=== PATIENT | female | born 1945 | race Caucasian/White ===

== ENCOUNTER 2018-06-30 05:30 | Observation (INO) | payer MEDICARE ==
--- NOTE | 2018-06-27 08:44 | HP ---
H&P (Free Text) History and Physical: [facility] TARYN HUNG M.D. [address] [place] [phone] Date of Visit: June 25, 2018 Patient Name: Radha Mcdermott : 1945 Gender: female Age: 72 years Primary Care Physician: Belia Philip MD HISTORY AND PHYSICAL CC: History prior to left total knee replacement for left knee pain. DATE OF SURGERY: 06/30/2018. ATTENDING SURGEON: Taryn Hung MD. HPI: The patient is a pleasant 72-year-old female with a longstanding history of bilateral knee pain with her left being worse than her right. She has received steroid injections, physical therapy, and NSAID treatment, however has continued to have pain and has elected to undergo a left total knee replacement by Dr. Hung for her end stage osteoarthritis of her left knee. CURRENT MEDICATIONS: 1. Tylenol p.r.n. 2. Pravastatin 20 mg p.o. daily. 3. Losartan potassium/hydrochlorothiazide 100/25. 4. Ibuprofen 200 mg every 6 hours as needed for pain. ALLERGIES: No known drug allergies. PAST MEDICAL HISTORY: 1. History of gastritis. No history of ulceration. 2. Hiatal hernia. 3. Diverticulosis. 4. History of carcinoma tumor. 5. Generalized osteoarthritis of bilateral knees. 6. Myopia. 7. Hyperlipidemia. 8. Essential hypertension. PAST SURGICAL HISTORY: 1. Total hysterectomy with bilateral oophorectomy, stage 1. 2. Thyroid, left lobe resection in 1975. 3. Tonsils and adenoids. 4. Left knee arthroscopy in 2002. FAMILY HISTORY: Positive for father with Parkinson's. SOCIAL HISTORY: No alcohol use. No tobacco use. Currently living at home. Living on 1 level. Friends will be staying at the home for several days with the patient postoperatively. ROS: Negative for fevers, chills, night sweats, nausea or vomiting, constipation, diarrhea, lightheadedness, dizziness, stroke, NH, COPD, shortness of breath, blood in her stool or urine, difficulty with ambulation, diabetes, bleeding disorders, difficulty with anesthesia, infectious disease. Positive for GERD, osteoarthritis in her hands, thyroid resection, not requiring medication. Vitals: Ht: 63" Wt: 180lb BP: 134/82 Resp: 20 Pain Level: 6 BMI: 31.9 EXAM: GENERAL: Well appearing, no acute distress. Alert and oriented x3. Mildly antalgic gait, favoring the left-hand side. HEENT: Normocephalic, atraumatic. Trachea midline. LUNGS: Clear to auscultation bilaterally. No crackles, rhonchi or wheezes. CARDIAC: Regular rate and rhythm. No murmurs, gallops or rubs. ABDOMEN: Soft, nontender, nondistended. Negative CVA tenderness bilaterally. MUSCULOSKELETAL: Bilateral posterior tibial pulses 2+. Positive dorsiflexion and plantar flexion, ankles bilaterally. Negative Homans sign. Range of motion of left knee 0-120 degrees with mild crepitus. No pain with terminal endpoints. No instability with varus or valgus stressing. Negative anterior drawer. STUDIES: X-rays of the left knee obtained on 03/26/2018. ASSESSMENT: Osteoarthritis, left knee. PLAN: The patient is to undergo a left total knee replacement on 06/30/[address] Taryn Hung. The patient had no questions or concerns with regard to the procedure. She will be on Coumadin postoperatively for DVT prophylaxis. She has had no difficulty with narcotic medications in the past. She wishes to return home postoperatively and will have friends there to care for her. She has undergone her CBC and CMP which are within normal limits. She will undergo preoperative testing. She was cleared by her primary doctor, Dr. Philip. She will call us with any questions or concerns she has. Assessment #1: Hx M17.12 Unilateral primary osteoarthritis, left knee Care Plan: Follow Up : Follow up: 1 month post-op
--- OUTSIDE RECORDS SUMMARY | 2018-06-30 05:35 | XMS REPORT | Continuity of Care Document ---
:1945 External Reference #:[id number] Author Name Kasey Cerna Care Team Providers Name Role Phone Belia Philip MD Primary Care Physician Unavailable Payers Type Date Identification Numbers Payment Provider Subscriber Policy Number: [id number] [facility] Medicare Maria Victoria Neely Group Number: [id number] [address] [address] PayID: [id number] [place] [address] Effective: 2014 Policy Number: [id number] Medicare Radha Neely Expires: 2015 PayID: [id number] [address] [facility] [place] [address] Expires: 2014 Policy Number: [facility] Medicare Radha Neely [id number] Solutions PayID: [id number] [address] [address] Karena PELAEZ [facility] [place] [address] Advance Directives Type Date Description Status Comment MOLST 01/24/2017 MOLST Current and Verified Problems Date Description Provider Status Onset: 01/21/2014 Essential hypertension Annette Stuart M.D. Active Onset: 01/21/2014 Hyperlipidemia Annette Stuart M.D. Active Onset: 01/21/2014 Myopia Annette Stuart M.D. Active Onset: 02/02/2015 Osteoarthritis of knee Luke Garcia M.D. Active Onset: 08/24/2015 Localized, primary osteoarthritis Luke Garcia M.D. Active Onset: 04/09/2016 Diverticulosis of sigmoid colon Tye Butler NP Active Onset: 04/09/2016 Hiatal hernia Tye Butler NP Active Note: small HH Onset: 04/09/2016 Gastritis Tye Butler NP Active Note: mild noted on colonoscopy; concurrent with aspirin use Onset: 04/09/2016 Gastric polyposis Tye Butler NP Active Note: colonoscopy: removed sent for testing Onset: 04/06/2016 Carcinoid tumor Tye Butler NP Active Note: Dr. Brittany Garcia([facility]) Plan for: octreotide scan Onset: 01/24/2017 Total hysterectomy with removal of both Belia Philip M.D. 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 months Losartan 00 Active Tablets 100-25mg 90tab 1 by mouth Belia Potassium/Hydr /0000 s every day Philip, ochlorothiazid M.D. e Pravastatin Active Tablets 20mg 90tab 1 tablet by Belia Sodium /0000 s mouth every Philip, other day M.D. Acetaminophen 00 Active Tablets 325mg 2 tablets by Unknown /0000 mouth every 6 hours as needed for pain/fever Keflex 04/18 Hx Capsules 500mg 42cap 1 tab by [id number] Tye /2015 s mouth three NICK Butler - times a day 05/02 for 14 days. Vitamin D 01/16 Hx Capsules [id number] 8caps 1 tab by Lesli (Ergocalcifero /2015 mouth once Cotton l) - per week, 8 M.D. 04/18 weeks, follow up for blood test Amoxicillin 08/12 Hx Tablets 500mg 20tab 1 tab twice J01.90 Annette /2015 s a day x 10 Stuart, - days M.D. 01/09 Flonase 08/12 Hx Suspension 50mcg/Act 16uni spray 1 J01.90 Annette Allergy Relief /2015 ts spray in Stuart, - each nostril M.DGustavo 04/18 twice daily /2016 Aspir-[address] 81mg 1 by mouth Unknown /0000 every day - 05/[address] 20mg 2 by mouth Unknown /0000 every day - 01/24 Ibuprofen 200 00 Hx Tablets 200mg 400-600mg Unknown /0000 every 6 - hours as 06/24 needed for /2018 pain. Depomedrol Hx Injection Luke 40MG /0000 Morena Garcia M.D. 08/24 Medications Administered in Office Medication Date Status Form Strength Qnty SIG Indications Ordering Provider Depomedrol Administered Injection Luke 40MG Damian Garcia M.D. Depomedrol Administered Injection Luke 40MG 018 Kei Garcia Depomedrol Administered Injection Estrellita 40MG 017 SHAYE Olivier Depomedrol Administered Injection Luke 40MG 017 Kei Garcia Depomedrol Administered Injection Luke 40MG 017 Kei Garcia Depomedrol Administered Injection Luke 40MG 016 Kei Garcia Depomedrol Administered Injection Luke 40MG 016 Kei Garcia Depomedrol Administered Injection Luke 40MG 016 Kei Garcia Depomedrol Administered Injection Luke 40MG 016 Kei Garcia Depomedrol Administered Injection Luke 40MG 016 Kei Garcia Depomedrol Administered Injection Tia 80MG 015 KARLI Johnson Immunizations CPT Code Status Date Vaccine Lot # [id number] Given 03/31/2018 Influenza Virus Vaccine, Quadrivalent, Split, Preservative Free [id number] Given 03/19/2017 Influenza Virus Vaccine, Quadrivalent, Split, Preservative Free 38014 Given 03/20/2016 Fluzone High Dose 89465 Given 03/31/2015 Fluzone High Dose 87412 Given 01/06/2015 Tdap - Tetanus/Diptheria/Acellular Pertussis [id number] 70579 Given 01/06/2015 Pneumococcal Conjugate Vaccine 13 Valent For [id number] Intramuscular Use 47530 Given 03/25/2014 Flu Vaccine Split Virus Preservative Free For Indiv 3Yr Older 99202 Given 01/21/2014 Zoster (Zostavax) [id number] 68742 Given 02/02/2009 Pneumonia Vaccine Vital Signs Date Vital Result Comment 06/25/2018 12:57pm Height 63 inches 5'3" Weight 180.00 lb BP Systolic 134 mmHg BP Diastolic 82 mmHg Respiratory Rate 20 /min Pain Level 6 BMI (Body Mass Index) 31.9 kg/m2 06/05/2018 9:20am Height 62 inches 5'2" Weight 180.00 lb Heart Rate 60 /min BP Systolic Sitting 128 mmHg BP Diastolic Sitting 76 mmHg O2 % BldC Oximetry 96 % BMI (Body Mass Index) 32.9 kg/m2 04/14/2018 10:51am Height 62 inches 5'2" Weight 178.00 lb Heart Rate 80 /min BP Systolic Sitting 126 mmHg BP Diastolic Sitting 80 mmHg O2 % BldC Oximetry 96 % BMI (Body Mass Index) 32.6 kg/m2 03/26/2018 11:07am Height 63 inches 5'3" Weight 176.00 lb Heart Rate 70 /min BP Systolic 124 mmHg BP Diastolic 76 mmHg Respiratory Rate 20 /min Pain Level 7 BMI (Body Mass Index) 31.2 kg/m2 11/18/2017 9:53am Height 63 inches 5'3" Weight 176.00 lb Heart Rate 66 /min BP Systolic Sitting 126 mmHg BP Diastolic Sitting 78 mmHg O2 % BldC Oximetry 94 % BMI (Body Mass Index) 31.2 kg/m2 10/23/2017 10:16am Height 63 inches 5'3" Weight 185.00 lb BP Systolic 136 mmHg BP Diastolic 78 mmHg Respiratory Rate 18 /min Pain Level 5 BMI (Body Mass Index) 32.8 kg/m2 06/19/2017 9:23am Height 63 inches 5'3" Weight 185.00 lb BP Systolic 118 mmHg BP Diastolic 70 mmHg Respiratory Rate 20 /min Pain Level 6 BMI (Body Mass Index) 32.8 kg/m2 02/13/2017 9:18am Height 63 inches 5'3" Weight 185.00 lb BP Systolic 130 mmHg BP Diastolic 68 mmHg Respiratory Rate 20 /min Body Temperature 97.4 F Pain Level 5 BMI (Body Mass Index) 32.8 kg/m2 01/24/2017 1:13pm Height 63 inches 5'3" Weight 185.50 lb Heart Rate 53 /min BP Systolic 120 mmHg BP Diastolic 60 mmHg Body Temperature 97.3 F O2 % BldC Oximetry 98 % BMI (Body Mass Index) 32.9 kg/m2 10/10/2016 9:17am Height 63 inches 5'3" Weight 185.00 lb Heart Rate 78 /min BP Systolic 138 mmHg BP Diastolic 80 mmHg Respiratory Rate 16 /min Body Temperature 97.4 F Pain Level 4 BMI (Body Mass Index) 32.8 kg/m2 05/09/2016 8:58am Height 63 inches 5'3" Weight 185.00 lb per patient BP Systolic Sitting 138 mmHg BP Diastolic Sitting 80 mmHg Pain Level 4 /10 BMI (Body Mass Index) 32.8 kg/m2 04/18/2016 11:37am Height 63 inches 5'3" Weight 186.25 lb Heart Rate 92 /min BP Systolic Sitting 138 mmHg BP Diastolic Sitting 66 mmHg Body Temperature 98.4 F O2 % BldC Oximetry 97 % BMI (Body Mass Index) 33.0 kg/m2 01/12/2016 11:12am Height 63 inches 5'3" Weight 184.00 lb Pain Level 7 BMI (Body Mass Index) 32.6 kg/m2 01/10/2016 9:03am Height 63 inches 5'3" Weight 184.00 lb Heart Rate 56 /min BP Systolic Sitting 159 mmHg 138/76 recheck BP Diastolic Sitting 84 mmHg 138/76 recheck Body Temperature 97.1 F BMI (Body Mass Index) 32.6 kg/m2 08/24/2015 8:08am Height 63.5 inches 5'3.50" Weight 186.00 lb Pain Level 6 BMI (Body Mass Index) 32.4 kg/m2 08/12/2015 9:02am Heart Rate 65 /min BP Systolic Sitting 150 mmHg BP Diastolic Sitting 80 mmHg Body Temperature 98.1 F O2 % BldC Oximetry 97 % 04/27/2015 9:14am Height 63.5 inches 5'3.50" Weight 186.00 lb Pain Level 6 BMI (Body Mass Index) 32.4 kg/m2 04/08/2015 10:04am Height 63.5 inches 5'3.50" Weight 187.50 lb Heart Rate 58 /min BP Systolic Sitting 128 mmHg BP Diastolic Sitting 76 mmHg O2 % BldC Oximetry 98 % BMI (Body Mass Index) 32.7 kg/m2 02/02/2015 8:08am Height 63.5 inches 5'3.50" Weight 186.00 lb Heart Rate 59 /min BP Systolic 154 mmHg BP Diastolic 86 mmHg Respiratory Rate 18 /min Pain Level 5 BMI (Body Mass Index) 32.4 kg/m2 01/06/2015 8:49am Height 63.5 inches 5'3.50" Weight 186.25 lb Heart Rate 56 /min BP Systolic Sitting 132 mmHg BP Diastolic Sitting 88 mmHg O2 % BldC Oximetry 98 % BMI (Body Mass Index) 32.5 kg/m2 06/24/2014 9:47am Weight 187.00 lb Heart Rate 58 /min BP Systolic Sitting 124 mmHg BP Diastolic Sitting 82 mmHg 01/21/2014 1:42pm Height 63 inches 5'3" Weight 189.00 lb Heart Rate 70 /min BP Systolic Sitting 128 mmHg BP Diastolic Sitting 82 mmHg BMI (Body Mass Index) 33.5 kg/m2 Results Test Date Facility Test Result H/L Range Note Inr/Protime 06/17/2018 [facility] Inr 0.91 N 0.77-1.[address] [place] [address] [phone] Laboratory test 06/17/2018 [facility] Partial 30.8 seconds N 26.0-36.3 [address] [place] [address] PTT [phone] Comp Metabolic 06/17/2018 [facility] Sodium 140 mmol/L N 135- [address] [place] [address] [phone] Potassium 3.4 mmol/L Low 3.5-5.0 Chloride 102 mmol/L N 101-111 Co2 Carbon Dioxide 30 mmol/L N 22-32 Anion Gap 8 mmol/L N 2-11 Glucose 92 mg/dL N 70-100 Blood Urea Nitrogen 19 mg/dL N 6-24 Creatinine 0.68 mg/dL N 0.51-0.95 BUN/Creatinine Ratio 27.9 High 8-20 Calcium 9.6 mg/dL N 8.6-10.3 Total Protein 6.4 g/dL N 6.4-8.9 Albumin 4.2 g/dL N 3.2-5.2 Globulin 2.2 g/dL N 2-4 Albumin/Globulin Ratio 1.9 N 1-3 Total Bilirubin 0.60 mg/dL N 0.2-1.0 Alkaline Phosphatase 69 U/L N 34-104 Alt 16 U/L N 7-52 Ast 18 U/L N 13-39 Egfr Non- 85.1 >60 Egfr 102.9 >60 3 CBC Auto Diff 06/17/2018 [facility] White Blood 7.0 10^3/uL N 3.5-10.[address] [place] [address] [phone] Red Blood Count 5.16 10^6/uL N 4.00-5.40 Hemoglobin 15.8 g/dL N 12.0-16.0 Hematocrit 46 % N 35-47 Mean Corpuscular Volume 88 fL N 80-97 Mean Corpuscular Hemoglobin 31 pg N 27-31 Mean Corpuscular HGB Conc 35 g/dL N 31-36 Red Cell Distribution Width 13 % N 10.5-15 Platelet Count 268 10^3/uL N 150-450 Mean Platelet Volume 8.3 fL N 7.4-10.4 Abs Neutrophils 4.2 10^3/uL N 1.5-7.7 Abs Lymphocytes 2.1 10^3/uL N 1.0-4.8 Abs Monocytes 0.5 10^3/uL N 0-0.8 Abs Eosinophils 0.1 10^3/uL N 0-0.6 Abs Basophils 0.1 10^3/uL N 0-0.2 Abs Nucleated RBC 0 10^3/uL Granulocyte % 60.6 % Lymphocyte % 29.3 % Monocyte % 6.7 % Eosinophil % 2.1 % Basophil % 1.3 % Nucleated Red Blood Cells % 0.1 Type & Screen 06/17/2018 [facility] Patient Blood Type A Positive [address] [place] [address] [phone] Antibody Screen NEGATIVE Urinalysis Profile 06/17/2018 [facility] Urine Color Yellow [address] [place] [address] [phone] Urine Appearance Clear Urine Specific [place] 1.005 Low 1.010-1.030 Urine pH 7.0 N 5-9 Urine Urobilinogen Negative Negative Urine Ketones Negative Negative Urine Protein Negative Negative Urine Leukocytes Trace Abnormal Negative Urine Blood Negative Negative Urine Nitrite Negative Negative Urine Bilirubin Negative Negative Urine Glucose Negative Negative Urine White Blood Cell Trace(0-5/hpf) Absent Urine Red Blood Cell Absent Absent Urine Bacteria Absent Absent Urine Squamous Epithelial Cell Present Abnormal Absent Urine Culture And 06/17/2018 [facility] Urine Culture SEE RESULT [address] [place] [address] [phone] Laboratory test 01/09/2018 [facility] Surgical Pathology SEE RESULT [address] [place], [place] [id number] [phone] Lipid Profile 11/22/2017 [facility] Triglycerides 115 mg/dL 6 (Trig/Chol/HDL) [address] [place] [address] [phone] Cholesterol 154 mg/dL 7 HDL Cholesterol 45.7 mg/dL 8 LDL Cholesterol 85 mg/dL 9 Laboratory test 11/22/2017 [facility] Magnesium 2.1 mg/dL N 1.9-2.[address] [place] [address] [phone] Basic Metabolic 11/22/2017 [facility] Sodium 143 mmol/L N 139- [address] [place] [address] [phone] Potassium 3.7 mmol/L N 3.5-5.0 Chloride 103 mmol/L N 101-111 Co2 Carbon Dioxide 31 mmol/L N 22-32 Anion Gap 9 mmol/L N 2-11 Glucose 101 mg/dL High 70-100 Blood Urea Nitrogen 15 mg/dL N 6-24 Creatinine 0.64 mg/dL N 0.51-0.95 BUN/Creatinine Ratio 23.4 High 8-20 Calcium 9.4 mg/dL N 8.6-10.3 Egfr Non- 91.2 >60 Egfr 117.3 >60 10 Lipid Profile 01/23/2017 [facility] Triglycerides 152 mg/dL N 11 (Trig/Chol/HDL) [address] [place] [address] [phone] Cholesterol 165 mg/dL N 12 HDL Cholesterol 43.8 mg/dL N 13 LDL Cholesterol 91 mg/dL N 14 Comp Metabolic Panel 01/23/2017 [facility] Sodium 140 mmol/L N 133-[address] [place] [address] [phone] Potassium 3.3 mmol/L Low 3.5-5.0 Chloride 104 mmol/L N 101-111 Co2 Carbon Dioxide 28 mmol/L N 22-32 Anion Gap 8 mmol/L N 2-11 Glucose 99 mg/dL N 70-100 Blood Urea Nitrogen 10 mg/dL N 6-24 Creatinine 0.60 mg/dL N 0.51-0.95 BUN/Creatinine Ratio 16.7 N 8-20 Calcium 9.3 mg/dL N 8.6-10.3 Total Protein 6.2 g/dL Low 6.4-8.9 Albumin 3.8 g/dL N 3.2-5.2 Globulin 2.4 g/dL N 2-4 Albumin/Globulin Ratio 1.6 N 1-3 Total Bilirubin 0.70 mg/dL N 0.2-1.0 Alkaline Phosphatase 60 U/L N 34-104 Alt 14 U/L N 7-52 Ast 18 U/L N 13-39 Egfr Non- 98.5 N >60 Egfr 126.7 N >60 15 Laboratory 01/23/2017 [facility] Hepatitis C Nonreactive N Nonreactive 16 test finding [address] [place] [address] [phone] Laboratory 12/28/2016 [facility] Surgical SEE RESULT 17 test finding [address] [place] [address] Order [phone] Laboratory 05/15/2016 [facility] Surgical SEE RESULT 18 test finding [address] [place] [address] Order [phone] Stool For 05/15/2016 [facility] Stool Occult SEE RESULT [address] [place] [address] [phone] CBC Auto Diff 04/11/2016 [facility] White Blood 9.1 10^3/uL N 3.5-10.[address] [place] [address] [phone] Red Blood Count 4.34 10^6/uL N 4.0-5.4 Hemoglobin 12.8 g/dL N 12.0-16.0 Hematocrit 37 % N 35-47 Mean Corpuscular Volume 85 fL N 80-97 Mean Corpuscular Hemoglobin 29 pg N 27-31 Mean Corpuscular HGB Conc 35 g/dL N 31-36 Red Cell Distribution Width 13 % N 10.5-15 Platelet Count 262 10^3/uL N 150-450 Mean Platelet Volume 9 um3 N 7.4-10.4 Abs Neutrophils 6.6 10^3/uL N 1.5-7.7 Abs Lymphocytes 1.9 10^3/uL N 1.0-4.8 Abs Monocytes 0.5 10^3/uL N 0-0.8 Abs Eosinophils 0.1 10^3/uL N 0-0.6 Abs Basophils 0.1 10^3/uL N 0-0.2 Abs Nucleated RBC 0 10^3/uL N Granulocyte % 72.9 % N 38-83 Lymphocyte % 20.4 % Low 25-47 Monocyte % 5.0 % N 1-9 Eosinophil % 0.6 % N 0-6 Basophil % 1.1 % N 0-2 Nucleated Red Blood Cells % 0 N Stool For Blood 04/11/2016 [facility] Stool Occult SEE RESULT [address] [place] [address] [phone] Comp Metabolic 04/11/2016 [facility] Sodium 138 mmol/L N 133- [address] [place] [address] [phone] Potassium 3.3 mmol/L Low 3.5-5.0 Chloride 102 mmol/L N 101-111 Co2 Carbon Dioxide 29 mmol/L N 22-32 Anion Gap 7 mmol/L N 2-11 Glucose 111 mg/dL High 70-100 Blood Urea Nitrogen 35 mg/dL High 6-24 Creatinine 0.55 mg/dL N 0.51-0.95 BUN/Creatinine Ratio 63.6 High 8-20 Calcium 9.0 mg/dL N 8.6-10.3 Total Protein 6.1 g/dL Low 6.4-8.9 Albumin 3.7 g/dL N 3.2-5.2 Globulin 2.4 g/dL N 2-4 Albumin/Globulin Ratio 1.5 N 1-3 Total Bilirubin 0.40 mg/dL N 0.2-1.0 Alkaline Phosphatase 51 U/L N 34-104 Alt 13 U/L N 7-52 Ast 16 U/L N 13-39 Egfr Non- 109.3 N >60 Egfr 140.5 N >60 21 Laboratory test 04/11/2016 [facility] C Reactive 4.08 mg/L N < 5.00 [address] [place] [address] [phone] Troponin-I (TnI) 0.01 ng/mL N <0.03 23 Type & Screen 04/11/2016 [facility] Patient Blood Type A Positive N [address] [place], [place] [id number] [phone] Antibody Screen NEGATIVE N Laboratory test 04/09/2016 [facility] Surgical SEE RESULT 24, [address] [place] [address] [phone] Laboratory test 04/09/2016 [facility] Clotest SEE RESULT [address] [place] [address] [phone] Laboratory test 02/23/2016 [facility] Vitamin D Total 38.0 ng/ mL N 30-5 [address] 25(Oh) 0 [place] [address] [phone] Laboratory test 01/24/2016 [facility] Occult Blood - pos x's 2, finding Stool neg 1 Lipid Profile 01/16/2016 [facility] Triglycerides 132 mg/dL N 28 (Trig/Chol/HDL) [address] [place] [address] [phone] Cholesterol 162 mg/dL N 29 HDL Cholesterol 50.5 mg/dL N 30 LDL Cholesterol 85 mg/dL N 31 Comp Metabolic Panel 01/16/2016 [facility] Sodium 141 mmol/L N 133-[address] [place] [address] [phone] Potassium 3.8 mmol/L N 3.5-5.0 Chloride 100 mmol/L Low 101-111 Co2 Carbon Dioxide 33 mmol/L High 22-32 Anion Gap 8 mmol/L N 2-11 Glucose 103 mg/dL High 70-100 Blood Urea Nitrogen 15 mg/dL N 6-24 Creatinine 0.69 mg/dL N 0.51-0.95 BUN/Creatinine Ratio 21.7 High 8-20 Calcium 9.6 mg/dL N 8.6-10.3 Total Protein 6.2 g/dL Low 6.4-8.9 Albumin 4.1 g/dL N 3.2-5.2 Globulin 2.1 g/dL N 2-4 Albumin/Globulin Ratio 2.0 N 1-3 Total Bilirubin 0.80 mg/dL N 0.2-1.0 Alkaline Phosphatase 58 U/L N 34-104 Alt 18 U/L N 7-52 Ast 17 U/L N 13-39 Egfr Non- 84.1 N >60 Egfr 108.2 N >60 32 Laboratory test 01/16/2016 [facility] Vitamin D Total 24.9 Low 30-50 [address] 25(Oh) ng/[place] [address] [phone] Laboratory test 04/08/2015 [facility] In House Hemoglobin A1c 5.0 5-7 finding Lipid Profile 04/04/2015 Triglycerides 123 mg/dL N 34 (Trig/Chol/HDL) Cholesterol 157 mg/dL N 35 HDL Cholesterol 44.6 mg/dL N 36 LDL Cholesterol 88 mg/dL N 37 Comp Metabolic Panel 04/04/2015 Sodium 140 mmol/L N 133-145 Potassium 3.6 mmol/L N 3.5-5.0 Chloride 100 mmol/L Low 101-111 Co2 Carbon Dioxide 31 mmol/L N 22-32 Anion Gap 9 mmol/L N 2-11 Glucose 101 mg/dL High 70-100 Blood Urea Nitrogen 14 mg/dL N 6-24 Creatinine 0.65 mg/dL N 0.51-0.95 BUN/Creatinine Ratio 21.5 High 8-20 Calcium 9.7 mg/dL N 8.6-10.3 Total Protein 6.3 g/dL Low 6.4-8.9 Albumin 4.1 g/dL N 3.2-5.2 Globulin 2.2 g/dL N 2-4 Albumin/Globulin Ratio 1.9 N 1-3 Total Bilirubin 0.70 mg/dL N 0.2-1.0 Alkaline Phosphatase 57 U/L N 34-104 Alt 16 U/L N 7-52 Ast 17 U/L N 13-39 Egfr Non- 90.4 N >60 Egfr 116.2 N >60 38 Laboratory test 04/04/2015 Vitamin D Total 31.5 ng/mL N 30-50 finding 25(Oh) Vitamin D, 25 06/14/2014 [facility] 25-Hydroxy <4.0 ng/mL N Hydroxy [address] Vitamin [place]2 [place] [address] [phone] 25-Hydroxy Vitamin D3 29 ng/mL N 25-Hydroxy Vitamin D Total 29 ng/mL N 39 Lipid Profile 06/14/2014 [facility] Triglycerides 123 mg/dL N 40 (Trig/Chol/HDL) [address] [place] [address] [phone] Cholesterol 158 mg/dL N 41 HDL Cholesterol 44.6 mg/dL N 42 LDL Cholesterol 89 mg/dL N 43 Comp Metabolic Panel 06/14/2014 [facility] Sodium 139 mmol/L N 133-145 [address] [place] [address] [phone] Potassium 3.8 mmol/L N 3.5-5.0 44 Chloride 101 mmol/L N 101-111 Co2 Carbon Dioxide 33 mmol/L High 22-32 Anion Gap 5 mmol/L N 2-11 Glucose 94 mg/dL N 70-100 Blood Urea Nitrogen 16 mg/dL N 6-24 Creatinine 0.65 mg/dL N 0.51-0.95 BUN/Creatinine Ratio 24.6 High 8-20 Calcium 9.8 mg/dL N 8.6-10.3 Total Protein 6.4 g/dL N 6.4-8.9 Albumin 4.2 g/dL N 3.2-5.2 Globulin 2.2 g/dL N 2-4 Albumin/Globulin Ratio 1.9 N 1-3 Total Bilirubin 0.80 mg/dL N 0.2-1.0 Alkaline Phosphatase 62 U/L N 34-104 Alt 12 U/L N 7-52 Ast 15 U/L N 13-39 Egfr Non- 90.6 N >60 Egfr 116.6 N >60 45 1 AA 04/30 2 AA 04/30 3 Because ethnic data is not always readily available, this report includes an eGFR for both -Americans and non- Americans. The National Kidney Disease Education Program (NKDEP) does not endorse the use of the MDRD equation for patients that are not between the ages of 18 and 70, are , have extremes of body size, muscle mass, or nutritional status, or are non- or non-. According to the National Kidney Foundation, irrespective of diagnosis, the stage of the disease is based on the level of kidney function: Stage Description GFR(mL/min/1.73 m(2)) 1 Kidney damage with normal or decreased GFR 90 2 Kidney damage with mild decrease in GFR 60-89 3 Moderate decrease in GFR 30-59 4 Severe decrease in GFR 15-29 5 Kidney failure <15 (or dialysis) 4 SEE RESULT BELOW Name: RADHA NEELY : [address]: Luke Garcia MD Acct: [id number] Unit: [id number] AGE: 72 Location: [facility] Re06/17/18 SEX: F Status: REG REF SPEC: [id number] VLAD: 06/17/[address] [facility] [address]: Luke Garcia MD REQ: [id number] RECD: 06/17/18 STATUS: DAVID FAUSTIN DR: Belia Philip MD _ SOURCE: URINE SPDESC: ORDERED: Urine Culture QUERIES: Urine Source: Random Procedure Result Reported Site Urine Culture Final 06/18/18- 09 ML No growth of clinically significant organisms * ML - Main Lab . END OF REPORT DEPARTMENT OF PATHOLOGY, [address] [place] [address] Aleksander Trevino M.D. Director [facility] # [id number] 5 SEE RESULT BELOW Name: CHINRADHA : [address]: Juan Seals MD Acct: [id number] Unit: [id number] AGE: 72 Location: ENDO Re01/09/18 SEX: F Status: DEP REF SPEC: [id number] VLAD: 01/09/18-[address] [facility] [address]: Juan Seals MD REQ: [id number] RECD: 01/09/18 STATUS: [facility] DR: Thai Philip MD _ ORDERED: LEVEL 4/3 FINAL DIAGNOSIS 1. Stomach, mid body, biopsy: -- Fundic gland polyp. 2. Stomach, distal body, biopsy: -- Fundic gland polyp. 3. Stomach, fundus, biopsy: -- Benign nodular focus of body-type gastric mucosa with superficial red blood cell extravasation. CLINICAL HISTORY Screening/Surveillance for malignancy in asymptomatic patient; follow up carcinoid. POST-OPERATIVE DIAGNOSIS EGD: larynx ? symmetric; esophagus ? normal, esophagogastric junction at 38 cm, small hiatal hernia; stomach ? normal, 1 clip mid body, two of the largest nodules removed via cold snare, one next to clip 3 cm, one below clip 4.5 cm, biopsy (3) high body/ fundus; duodenum ? normal; conclusions/plan: hiatal hernia; fundal gastric polyps; history of carcinoid. GROSS DESCRIPTION 1. The specimen is received in formalin labeled, Mid Gastric Body Polyp, and consists of a 0.7 x 0.4 x 0.1 cm carpio irregular soft tissue fragment which is inked, trisected and submitted entirely in one cassette. 2. The specimen is received in formalin labeled, Distal Gastric Body Polyp , and consists of two carpio-pink polypoid soft tissue fragments measuring 0.5 x 0.3 x 0.2 cm and 0.6 x 0.4 x 0.3 cm. The specimen is differentially inked, bisected and submitted entirely in one CONTINUED ON NEXT PAGE DEPARTMENT OF PATHOLOGY, [address] [place] [address] Aleksander Trevino M.D. Director [facility] # [id number] RUN DATE: 01/10/18 [facility] LAB LIVE PAGE 2 Patient: RADHA NEELY [id number] (Continued) GROSS DESCRIPTION (Continued) GROSS DESCRIPTION (Continued) cassette. 3. The specimen is received in formalin labeled, Gastric Fundal Nodule Biopsy, and consists of three carpio-pink irregular to polypoid soft tissue fragments aggregating 0.6 by up to 0.5 x 0.3 cm which are submitted entirely in one cassette. Signed by and Reported on: Mariana Carbajal MD 01/10/18 1329 END OF REPORT DEPARTMENT OF PATHOLOGY, [address] [place] [address] Aleksander Trevino M.D. Director [facility] # [id number] 6 Desirable: <150 Borderline High: 150-199 High: 200-499 Very High: >500 7 Desirable: <200 Borderline High: 200-239 High: >239 8 Low: <40 Desirable: 40-60 High: >60 9 Desirable: <100 Near Optimal: 100-129 Borderline High: 130-159 High: 160-189 Very High: >189 10 Because ethnic data is not always readily available, this report includes an eGFR for both -Americans and non- Americans. The National Kidney Disease Education Program (NKDEP) does not endorse the use of the MDRD equation for patients that are not between the ages of 18 and 70, are , have extremes of body size, muscle mass, or nutritional status, or are non- or non-. According to the National Kidney Foundation, irrespective of diagnosis, the stage of the disease is based on the level of kidney function: Stage Description GFR(mL/min/1.73 m(2)) 1 Kidney damage with normal or decreased GFR 90 2 Kidney damage with mild decrease in GFR 60-89 3 Moderate decrease in GFR 30-59 4 Severe decrease in GFR 15-29 5 Kidney failure <15 (or dialysis) 11 Desirable <150 Borderline high 150-199 High 200-499 Very High >500 12 Desirable <200 Borderline high 200-239 High >239 13 Low <40 Desirable: 40-60 High: >60 14 Desirable: <100 mg/dL Near Optimal: 100-129 mg/dL Borderline High: 130-159 mg/dL High: 160-189 mg/dL Very High: >189 mg/dL 15 Because ethnic data is not always readily available, this report includes an eGFR for both -Americans and non- Americans. The National Kidney Disease Education Program (NKDEP) does not endorse the use of the MDRD equation for patients that are not between the ages of 18 and 70, are , have extremes of body size, muscle mass, or nutritional status, or are non- or non-. According to the National Kidney Foundation, irrespective of diagnosis, the stage of the disease is based on the level of kidney function: Stage Description GFR(mL/min/1.73 m(2)) 1 Kidney damage with normal or decreased GFR 90 2 Kidney damage with mild decrease in GFR 60-89 3 Moderate decrease in GFR 30-59 4 Severe decrease in GFR 15-29 5 Kidney failure <15 (or dialysis) 16 FASTING 12 HOUR 17 SEE RESULT BELOW Name: RADHA NEELY : [address]: Juan Seals MD Acct: [id number] Unit: [id number] AGE: 71 Location: ENDO Re12/28/16 SEX: F Status: DEP REF SPEC: [id number] VLAD: 12/28/[address] [facility] [address]: Juan Seals MD REQ: [id number] RECD: 12/28/16-1036 STATUS: CANDIDA FAUSTIN DR: Thai Garcia MD _ ORDERED: LEVEL 4/2 FINAL DIAGNOSIS 1. Gastric body, biopsies: -- Hyperplastic fundic gland polyps. 2. Gastric body, greater curvature, biopsies: -- Gastric fundic gland mucosa with focal foveolar hyperplasia and mild focal interstitial chronic inflammation. -- No active gastritis nor Helicobacter pylori-like organisms identified. CLINICAL HISTORY Follow-up polyps POST-OPERATIVE DIAGNOSIS Esophagus - normal, esophagogastric 37; stomach - 20-30 2-3 mm nodules, one "glassy" 2 mm nodule biopsied x2, clip along side a nodule biopsied x1; duodenum - normal. Conclusions/Plan: Gastric polyps; history of carcinoid, suspect JILLIAN GROSS DESCRIPTION 1. The specimen is received in formalin labeled, Polypectomy Sites Gastric Body, and consists of a 1.5 x 0.3 by up to 0.2 cm aggregate of carpio-white irregular to polypoid soft tissue fragments admixed with scant red-brown blood clot which is entirely submitted in one cassette. 2. The specimen is received in formalin labeled, Biopsy Gastric Body Distal Greater Curvature Polyp, and consists of a 0.5 x 0.4 x 0.3 cm patchy carpio-white irregular to polypoid soft tissue fragment which is entirely submitted in one cassette. CONTINUED ON NEXT PAGE * ML=Testing performed at Main Lab DEPARTMENT OF PATHOLOGY, [address] [place] [address] Aleksander Trevino M.D. Director KEN # [id number] RUN DATE: 12/31/16 [facility] LAB LIVE PAGE 2 Patient: CHINRADHA [id number] (Continued) GROSS DESCRIPTION (Continued) Signed (signature on file) Aleksander Trevino MD 1247 END OF REPORT * ML=Testing performed at Main Lab DEPARTMENT OF PATHOLOGY, [facility] [address] [place], [place] [address] Aleksander Trevino M.D. Director KEN # [id number] 18 SEE RESULT BELOW Name: RADHA NEELY : [address]: Juan Seals MD Acct: [id number] Unit: [id number] AGE: 70 Location: ENDO Re05/15/16 SEX: F Status: DEP REF SPEC: [id number] VLAD: 05/15/16-[address] [facility] [address]: Juan Seals MD REQ: [id number] RECD: 05/15/16 STATUS: CANDIDA FAUSTIN DR: Lesli Yap MD _ ORDERED: LEVEL IV/7 FINAL DIAGNOSIS 1. Stomach, greater curvature, biopsy: -- Hyperplastic fundic gland polyp. 2. Stomach, fundus, biopsy: -- Hyperplastic fundic gland polyp. 3. Stomach, fundus polyp #2, biopsy: -- Hyperplastic fundic gland polyp 4. Stomach, distal curvature polyp, biopsy: -- Hyperplastic fundic gland polyp. 5. Stomach, gastric body, biopsy: -- Hyperplastic fundic gland polyp. 6. Stomach, prior polypectomy site, biopsy: -- Hyperplastic fundic gland polyp. 7. Stomach, mid gastric body, biopsy: -- Hyperplastic fundic gland polyp. CLINICAL HISTORY Follow-up carcinoid POST-OPERATIVE DIAGNOSIS Multiple biopsies stomach, tattoo x3. Conclusions/Plan: Gastric polyps, biopsy old site, biopsy polyps new and old CONTINUED ON NEXT PAGE * ML=Testing performed at Main Lab DEPARTMENT OF PATHOLOGY, [address] [place] [address] Aleksander Trevino M.D. Director KEN # [id number] RUN DATE: 05/16/16 [facility] LAB LIVE PAGE 2 Patient: RADHA NEELY [id number] (Continued) GROSS DESCRIPTION (Continued) GROSS DESCRIPTION 1. The specimen is received in formalin labeled, Proximal Greater Curvature Polyp, and consists of a 0.6 x 0.4 x 0.4 cm speckled carpio-brown polypoid soft tissue fragment, which is entirely submitted in one cassette. 2. The specimen is received in formalin labeled, Biopsy Gastric Fundus Polyp, and consists of two speckled carpio-brown irregular to polypoid soft tissue fragments measuring 0.3 x 0.2 x 0.1 cm and 0.4 x 0.3 x 0.2 cm, which are entirely submitted in one cassette. 3. The specimen is received in formalin labeled, Gastric Fundus Polyp #2, and consists of a 0.5 x 0.4 x 0.3 cm speckled carpio-brown sessile polyp, which is inked, bisected and entirely submitted in one cassette. 4. The specimen is received in formalin labeled, Distal Greater Curvature Polyp, and consists of a 0.4 x 0.3 x 0.2 cm carpio-white irregular to polypoid soft tissue fragment, which is entirely submitted in one cassette. 5. The specimen is received in formalin labeled, Biopsy Gastric Body Polyp , and consists of two speckled carpio-brown irregular to polypoid soft tissue fragments measuring 0.5 x 0.4 x 0.2 cm and 0.7 x 0.2 x 0.1 cm, which are entirely submitted in one cassette. 6. The specimen is received in formalin labeled, Biopsy Prior Polypectomy Site, and consists of a 0.9 x 0.6 x 0.2 cm aggregate of speckled carpio-brown irregular to polypoid soft tissue fragments, which is entirely submitted in one cassette. 7. The specimen is received in formalin labeled, Mid Gastric Body Polyp, and consists of a 0.6 x 0.4 x 0.3 cm carpio-brown irregular to polypoid soft tissue fragment, which is entirely submitted in one cassette. Signed (signature on file) Aleksander Trevino MD 1716 END OF REPORT * ML=Testing performed at Main Lab DEPARTMENT OF PATHOLOGY, [address] [place] [address] Aleksander Trevino M.D. Director [facility] # [id number] 19 SEE RESULT BELOW Name: RADHA NEELY : [address]: Juan Seals MD Acct: [id number] Unit: [id number] AGE: 70 Location: ENDO Re05/15/16 SEX: F Status: REG REF SPEC: [id number] VLAD: 05/15/16-[address] [facility] [address]: Juan Seals MD REQ: [id number] RECD: 05/15/16 STATUS: DAVID FAUSTIN DR: Annette Stuart MD _ SOURCE: STOOL SPDESC: ORDERED: Hemoccult Procedure Result Reported Site Stool Occult Blood Final 05/15/16- 1321 ML Stool Occult Blood Negative * ML - MAIN LAB ([facility]) . END OF REPORT * ML=Testing performed at Main Lab DEPARTMENT OF PATHOLOGY, [address] [place] [address] Aleksander Trevino M.D. Director [facility] # [id number] 20 SEE RESULT BELOW Name: RADHA NEELY : [address]: Humza Sanchez MD Acct: [id number] Unit: [id number] AGE: 70 Location: ED Re04/11/16 SEX: F Status: REG ER SPEC: [id number] VLAD: 04/11/16-[address] [facility] [address]: Humza Sanchez MD REQ: [id number] RECD: 04/11/16-2 STATUS: DAVID FAUSTIN DR: Annette Stuart MD _ SOURCE: STOOL SPDESC: ORDERED: Hemoccult Procedure Result Reported Site Stool Occult Blood Final 04/11/16- 1036 ML Stool Occult Blood Negative * ML - MAIN LAB ([facility]) . END OF REPORT * ML=Testing performed at Main Lab DEPARTMENT OF PATHOLOGY, [address] [place] [address] Aleksander Trevino M.D. Director [facility] # [id number] 21 Because ethnic data is not always readily available, this report includes an eGFR for both -Americans and non- Americans. The National Kidney Disease Education Program (NKDEP) does not endorse the use of the MDRD equation for patients that are not between the ages of 18 and 70, are , have extremes of body size, muscle mass, or nutritional status, or are non- or non-. According to the National Kidney Foundation, irrespective of diagnosis, the stage of the disease is based on the level of kidney function: Stage Description GFR(mL/min/1.73 m(2)) 1 Kidney damage with normal or decreased GFR 90 2 Kidney damage with mild decrease in GFR 60-89 3 Moderate decrease in GFR 30-59 4 Severe decrease in GFR 15-29 5 Kidney failure <15 (or dialysis) 22 Acute inflammation: >10.00 23 Reference Range and Interpretation: TnI (ng/mL) Interpretation Less Than 0.03 ng/mL Not supportive of diagnosis of HI 0.03 - 0.50 ng/mL Indeterminate: suggest serial studies if clinically indicated. Greater than 0.5 ng/mL Consistent with diagnosis of HI 24 [id number] 25 SEE RESULT BELOW Name: RADHA NEELY : [address]: Juan Seals MD Acct: [id number] Unit: [id number] AGE: 70 Location: ENDOCEC Re04/09/16 SEX: F Status: DEP REF SPEC: [id number] VLAD: 04/09/16-[address]: Juan Seals MD REQ: [id number] RECD: 04/09/16-170 STATUS: CANDIDA FAUSTIN DR: Annette Stuart MD _ ORDERED: CHROMOGRANIN A, LEVEL IV, SYNA-ADD, UN87-WPY, YI76-QWH, DU777-VPY COMMENTS: [id number] FINAL DIAGNOSIS Stomach, greater curvature, biopsies: -- Carcinoid tumor (well-differentiated neuroendocrine tumor, NET G1). -- Carcinoid tumor present at inked deep margin of biopsy. Comment: Biopsy demonstrates an epithelioid proliferation with in the lamina propria and subcutaneous mucosal tissues. Tumor demonstrates epithelioid cells with uniform round to oval nuclei with inconspicuous nucleoli, moderate pink cytoplasm arranged in sheets, areas of cellular streaming and abortive rosettes. Mitotic count is 1 per 10 high power yost. The following immunochemical stains are performed with appropriate controls CD56 strongly positive Chromogranin variable positive Synaptophysin diffuse positive C-KIT negative Ki-67 index 2% The morphologic features and proliferative indices support a diagnosis of well-differentiated neuroendocrine tumor (carcinoid tumor). Reexcision of this lesion should be considered due to demonstrated positive margins of the biopsy. Dr. Carbajal has reviewed this case and concurs. Dr. Seals informed of these results on 04/11/2016. CONTINUED ON NEXT PAGE * ML=Testing performed at Main Lab DEPARTMENT OF PATHOLOGY, [address] [place] [address] Aleksander Trevino M.D. Director KEN # [id number] RUN DATE: 04/11/16 [facility] LAB LIVE PAGE 2 Patient: RADHA NEELY [id number] (Continued) CLINICAL HISTORY (Continued) CLINICAL HISTORY Usual bowel habits - every day with no blood. Heme+, CBC normal. Diet - anything, weight - no changes. POST-OPERATIVE DIAGNOSIS EGD - larynx symmetric. Esophagus - normal EG 36 1/2 hiatus 35, small hiatal hernia, Stomach - approximately 15 - 30 2-8 mm polyps, 5x7 GC. Largest NESP and somewhat adhered. Duodenum - normal. Colonoscopy - diverticulosis only sig to duodenum. Conclusions/Plan: 1. Gastric polyps, 2. Small hiatal hernia, 3. Diverticulosis, 4. Heme +?? GROSS DESCRIPTION The specimen is received in formalin labeled, Gastric Greater Curvature Polyp , and consists of a 1.0 x 0.7 x 0.5 cm variegated red-pink sessile polyp with an attached 0.3 x 0.3 x 0.2 cm carpio-white polypoid soft tissue fragment. The specimen is inked, longitudinally trisected and entirely submitted in one cassette. Signed (signature on file) Aleksander Trevino MD 1410 END OF REPORT * ML=Testing performed at Main Lab DEPARTMENT OF PATHOLOGY, [address] [place] [address] Aleksander Trevino M.D. Director [facility] # [id number] 26 SEE RESULT BELOW Name: RADHA NEELY : [address]: Juan Seals MD Acct: [id number] Unit: [id number] AGE: 70 Location: [facility] Re04/09/16 SEX: F Status: REG REF SPEC: [id number] VLAD: 04/09/16-[address] [facility] [address]: Juan Seals MD REQ: [id number] RECD: 04/09/16 STATUS: DAVID FAUSTIN DR: Annette Stuart MD _ SOURCE: [facility]: ORDERED: Clotest Procedure Result Reported Site Clotest Final 04/10/16718 ML Clotest Negative * ML - MAIN LAB ([facility]) . END OF REPORT * ML=Testing performed at Main Lab DEPARTMENT OF PATHOLOGY, [address] [place] [address] Aleksander Trevino M.D. Director [facility] # [id number] 27 [id number] 28 Desirable <150 Borderline high 150-199 High 200-499 Very High >500 29 Desirable <200 Borderline high 200-239 High >239 30 Low <40 Desirable: 40-60 High: >60 31 Desirable: <100 mg/dL Near Optimal: 100-129 mg/dL Borderline High: 130-159 mg/dL High: 160-189 mg/dL Very High: >189 mg/dL 32 Because ethnic data is not always readily available, this report includes an eGFR for both -Americans and non- Americans. The National Kidney Disease Education Program (NKDEP) does not endorse the use of the MDRD equation for patients that are not between the ages of 18 and 70, are , have extremes of body size, muscle mass, or nutritional status, or are non- or non-. According to the National Kidney Foundation, irrespective of diagnosis, the stage of the disease is based on the level of kidney function: Stage Description GFR(mL/min/1.73 m(2)) 1 Kidney damage with normal or decreased GFR 90 2 Kidney damage with mild decrease in GFR 60-89 3 Moderate decrease in GFR 30-59 4 Severe decrease in GFR 15-29 5 Kidney failure <15 (or dialysis) 33 [id number] FASTING 10 HOUR 34 Desirable <150 Borderline high 150-199 High 200-499 Very High >500 35 Desirable <200 Borderline high 200-239 High >239 36 Low <40 Desirable: 40-60 High: >60 37 Desirable: <100 mg/dL Near Optimal: 100-129 mg/dL Borderline High: 130-159 mg/dL High: 160-189 mg/dL Very High: >189 mg/dL 38 Because ethnic data is not always readily available, this report includes an eGFR for both -Americans and non- Americans. The National Kidney Disease Education Program (NKDEP) does not endorse the use of the MDRD equation for patients that are not between the ages of 18 and 70, are , have extremes of body size, muscle mass, or nutritional status, or are non- or non-. According to the National Kidney Foundation, irrespective of diagnosis, the stage of the disease is based on the level of kidney function: Stage Description GFR(mL/min/1.73 m(2)) 1 Kidney damage with normal or decreased GFR 90 2 Kidney damage with mild decrease in GFR 60-89 3 Moderate decrease in GFR 30-59 4 Severe decrease in GFR 15-29 5 Kidney failure <15 (or dialysis) 39 REFERENCE VALUE 25-HYDROXY D TOTAL (D2+D3) Optimum levels in the healthy population are 20-50, patients with bone disease may benefit from higher levels within this range. Test Performed by: [facility] [address] [address] [employer] Maker: Angelo Perera M.D. 40 Desirable <150 Borderline high 150-199 High 200-499 Very High >500 41 Desirable <200 Borderline high 200-239 High >239 42 Low <40 Desirable: 40-60 High: >60 43 Desirable <100 Near Optimal 100-129 Borderline high 130-159 High 160-189 Very High >189 44 Potassium reference range changed effective 05/23/14 45 Because ethnic data is not always readily available, this report includes an eGFR for both -Americans and non- Americans. The National Kidney Disease Education Program (NKDEP) does not endorse the use of the MDRD equation for patients that are not between the ages of 18 and 70, are , have extremes of body size, muscle mass, or nutritional status, or are non- or non-. According to the National Kidney Foundation, irrespective of diagnosis, the stage of the disease is based on the level of kidney function: Stage Description GFR(mL/min/1.73 m(2)) 1 Kidney damage with normal or decreased GFR 90 2 Kidney damage with mild decrease in GFR 60-89 3 Moderate decrease in GFR 30-59 4 Severe decrease in GFR 15-29 5 Kidney failure <15 (or dialysis) Procedures Date Code Description Status 06/05/2018 89862 EKG Tracing & Interpretation Completed 12/13/2017 [id number] Mammogram Completed 10/23/2017 20098 Inject/Drain Joint/Bursa Major W/O US Completed 06/19/2017 14825 Inject/Drain Joint/Bursa Major W/O US Completed 02/13/2017 97557 Inject/Drain Joint/Bursa Major W/O US Completed 01/24/2017 12928 EKG Tracing & Interpretation Completed 10/10/2016 89830 Inject/Drain Joint/Bursa Major W/O US Completed 05/09/201698896 Inject/Drain Joint/Bursa Major W/O US Completed 04/09/2016 [id number] Colonoscopy Completed 01/25/2016 [id number] Mammogram Completed 01/12/2016 Inject/Drain Joint/Bursa Major W/O US Completed 08/24/2015 Inject/Drain Joint/Bursa Major W/O US Completed 04/27/2015 Inject/Drain Joint/Bursa Major W/O US Completed 01/21/2015 [id number] Mammogram Completed 01/20/2015 [id number] Bone Mineral Density Test Completed 03/11/2014 [id number] Mammogram Completed 03/10/2014 [id number] Diabetic Retinal Eye Exam Completed 02/03/2014 [id number] Mammogram Completed Encounters Type Date Location Provider Dx Diagnosis Office Visit 06/05/2018 [facility] Internal Belia Philip, Z01.818 Encounter for other 9:50a Elda Berg M.D. preprocedural [place] examination M17.0 Bilateral primary osteoarthritis of knee E78.5 Hyperlipidemia, unspecified I10 Essential (primary) hypertension Z85.020 Personal history of malignant carcinoid tumor of stomach Office Visit 03/26/2018 Roque Butler M17.0 Bilateral primary 11:30a [facility] osteoarthritis of C.M.A. knee Office Visit 11/18/2017 [facility] Debbi Celaya I10 Essential (primary) 10:10a Elda Philip M.D. hypertension [place] R25.2 Cramp and spasm E78.5 Hyperlipidemia, unspecified Z12.31 Encntr screen mammogram for malignant neoplasm of breast Office Visit 05/09/2016 Roque Butler M17.0 Bilateral primary 9:15a [facility] osteoarthritis of C.M.A. knee Office Visit 04/18/2016 [facility] Internal Tye Butler, L03.313 Cellulitis of chest 12:40p Medicine [facility] [employer] [address] Office Visit 08/24/2015 Roque Butler M17.12 Unilateral primary 8:15a [facility] osteoarthritis, C.M.A. left knee M25.561 Pain in right knee Office Visit 08/12/2015 9:00a [facility] Internal Annette J01.90 Acute sinusitis , Elda Stuart M.D. unspecified [place] Office Visit 04/08/2015 10:40a [facility] Internal Annette 272.4 Hyperlipidemia Other Elda Stuart M.D. Unspec [place] 728.71 Fibromatosis Plantar Fascia 790.6 Abnormal Blood Chemistry Other Office Visit 02/02/2015 [facility] 715.96 Osteoarthrosis 8:00a [facility] Unspec Genlzd Or C.M.A. Localized Lower Leg Office Visit 01/06/2015 [facility] Internal Annette Stuart, V70.0 Examination General 9:00a Medicine - M.D. Medical Routine AT [facility] 401.9 Hypertension Unspec 272.4 Hyperlipidemia Other Unspec 627.9 Menopausal & Postmenopausal Disorder Unspec V76.19 Screening Breast Exam Malignant Neoplasms Other 717.9 Internal Derangement Knee Unspec 611.79 Breast Signs & Symptoms Other V03.82 Streptococcus Pneumoniae Vaccination Spec Other V06.1 Axchvhjsaq-Womalcv-Osuxkdeb Combined (DTaP) Office Visit 06/24/2014 10:00a [facility] Internal Annette Stuart, 401.9 Hypertension Unspec Medicine - M.D. [place] 272.4 Hyperlipidemia Other Unspec 300.09 Anxiety States Other 726.5 Enthesopathy Of Hip Region Office Visit 01/21/2014 1:40p [facility] Internal Annette Stuart, 401.9 Hypertension Unspec Medicine - M.D. [place] 272.4 Hyperlipidemia Other Unspec V76.19 Screening Breast Exam Malignant Neoplasms Other 367.1 Myopia V04.89 Need For Prophylactic Vaccination & Inoculation Other Virus Plan of Treatment Future Appointment(s):06/30/2018 7:30 am - Luke [facility] - Luke Garcia M.D.M17.12 Unilateral primary osteoarthritis, left kneeFollow up:Follow up: 1 month post-op
--- OUTSIDE RECORDS SUMMARY | 2018-06-30 05:35 | XMS REPORT | Continuity of Care Document ---
:1945 External Reference #:[id number] Author Name Suleman Chantelle Care Team Providers Name Role Phone Belia Philip MD Primary Care Physician Unavailable Payers Type Date Identification Numbers Payment Provider Subscriber Policy Number: [id number] [facility] Medicare Maria Victoria Neely Group Number: [id number] [address] [address] PayID: [id number] Karen[place] [address] Effective: 2014 Policy Number: [id number] Medicare Radha Neely Expires: 2015 PayID: [id number] [place] [address] Expires: 2014 Policy Number: [facility] Medicare Radha Neely [id number] Solutions PayID: [id number] [address] [address] Karena PELAE[place] [address] Advance Directives Type Date Description Status Comment [...] Tye Butler NP Active Note: Dr. Brittany Garcia([facility]) Plan for: octreotide scan Onset: 01/24/2017 Total hysterectomy with removal of both Belia Pihlip M.D. 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 months Losartan 00 Active Tablets 100-25mg 90tab 1 by mouth Belia Potassium/Hy /0000 s every day Philip, drochlorothi M.D. azide Pravastatin 00 Active Tablets 20mg 90tab 1 tablet by Belia Sodium /0000 s mouth every Philip, other day M.D. Ibuprofen 0000 Active Tablets 200mg 400-600mg Unknown 200 /0000 every 6 hours as needed for pain. Keflex 04/18 Hx Capsules 500mg 42cap 1 tab by mouth L03.313 Tye /Sherly s three times a NICK Butler - day for 14 05/02 days. Vitamin D 01/16 Hx Capsules [id number] 8caps 1 tab by mouth Lesli (Ergocalcife /2015 once per week, bebe Yap) - 8 weeks, then M.D. 04/18 follow up blood test Amoxicillin 08/12 Hx Tablets 500mg 20tab 1 tab twice a J01.90 Annette /2015 s day x 10 days Morena Stuart M.D. 01/09 Flonase 08/12 Hx Suspension 50mcg/Act 16uni spray 1 spray J01.90 Annette Allergy ts in each Narciso Relief - nostril twice M.D. 04/182016 Aspir-[address] 81mg 1 by mouth Unknown /0000 every day - 05/08 [address] 20mg 2 by mouth Unknown /0000 every day - 01/24 Depomedrol 00 Hx Injection Luke 40MG /0000 Morena Garcia M.D. 08/24 Medications Administered in Office Medication Date Status Form Strength Qnty SIG Indications Ordering Provider Depomedrol Administered Injection Luke 40MG 018 Kei Garcia Depomedrol Administered Injection Luke 40MG 018 Kei [...] CPT Code Status Date Vaccine Lot # [id number] Given 03/31/2018 Influenza Virus Vaccine, Quadrivalent, Split, Preservative Free 22053 Given 03/19/2017 Influenza Virus Vaccine, Quadrivalent, Split, Preservative Free 38515 Given 03/20/2016 Fluzone High Dose 39908 Given 03/31/2015 Fluzone High Dose 95454 Given 01/06/2015 Tdap - Tetanus/Diptheria/Acellular Pertussis [id number] 82877 Given 01/06/2015 Pneumococcal Conjugate Vaccine 13 Valent For [id number] Intramuscular Use 09382 Given 03/25/2014 Flu Vaccine Split Virus Preservative Free For Indiv 3Yr Older 74455 Given 01/21/2014 Zoster (Zostavax) [id number] 90226 Given 02/02/2009 Pneumonia Vaccine Vital Signs Date Vital Result Comment 06/05/2018 9:20am Height 62 inches 5'2" Weight [...] Date Facility Test Result H/L Range Note Order 06/05/2018 [facility] In-House EKG <pending> Laboratory test 01/09/2018 [facility] Surgical SEE RESULT [address] [place] [address] [phone] Basic Metabolic 11/22/2017 [facility] Sodium 143 mmol/L N 139- [address] [place] [address] [phone] Potassium 3.7 mmol/L N 3.5-5.0 Chloride 103 mmol/L N 101-111 Co2 Carbon Dioxide 31 mmol/L N 22-32 Anion Gap 9 mmol/L N 2-11 Glucose 101 mg/dL High 70-100 Blood Urea Nitrogen 15 mg/dL N 6-24 Creatinine 0.64 mg/dL N 0.51-0.95 BUN/Creatinine Ratio 23.4 High 8-20 Calcium 9.4 mg/dL N 8.6-10.3 Egfr Non- 91.2 >60 Egfr 117.3 >60 2 Laboratory test 11/22/2017 [facility] Magnesium 2.1 mg/dL N 1.9-2.[address] [place] [address] [phone] Lipid Profile 11/22/2017 [facility] Triglycerides 115 mg/dL 3 (Trig/Chol/HDL) [address] [place] [address] [phone] Cholesterol 154 mg/dL 4 HDL Cholesterol 45.7 mg/dL 5 LDL Cholesterol 85 mg/dL 6 Lipid Profile 01/23/2017 [facility] Triglycerides 152 mg/dL N 7 (Trig/Chol/HDL) [address] [place], [place] [id number] [phone] Cholesterol 165 mg/dL N 8 HDL Cholesterol 43.8 mg/dL N 9 LDL Cholesterol 91 mg/dL N 10 Comp Metabolic Panel 01/23/2017 [facility] Sodium 140 mmol/L N 133-[address] [place], [place] [address] [phone] Potassium 3.3 mmol/L Low 3.5-5.0 Chloride 104 [...] 98.5 N >60 Egfr 126.7 N >60 11 Laboratory 01/23/2017 [facility] Hepatitis C Nonreactive N Nonreactive 12 test finding [address] Antibody [place], [place] [address] [phone] Laboratory 12/28/2016 [facility] Surgical SEE RESULT 13 test finding [address] [place] [address] Order [phone] Laboratory 05/15/2016 [facility] Surgical SEE RESULT 14 test finding [address] [address] Order [phone] Stool For 05/15/2016 [facility] Stool Occult SEE RESULT [address] [place] [address] [phone] CBC Auto Diff 04/11/2016 [facility] White Blood 9.1 10^3/uL N 3.5-10.[address] Count [place], [place] [address] [phone] Red Blood Count 4.34 10^6/uL N 4.0-5.4 [...] % 0 N Stool For Blood 04/11/2016 [facility] Stool Occult SEE RESULT [address] [place] [address] [phone] Comp Metabolic 04/11/2016 [facility] Sodium 138 mmol/L N 133- [address] [place] [address] [phone] Potassium 3.3 mmol/L Low 3.5-5.0 Chloride 102 [...] 109.3 N >60 Egfr 140.5 N >60 17 Laboratory test 04/11/2016 [facility] C Reactive 4.08 mg/L N < 5.[address] [place] [address] [phone] Troponin-I (TnI) 0.01 ng/mL N <0.03 19 Type & Screen 04/11/2016 [facility] Patient Blood Type A Positive N [address] [place] [address] [phone] Antibody Screen NEGATIVE N Laboratory test 04/09/2016 [facility] Surgical SEE RESULT 20, [address] [place] [address] [phone] Laboratory test 04/09/2016 [facility] Clotest SEE RESULT [address] BEL[address] [place], [place] [address] [phone] Laboratory test 02/23/2016 [facility] Vitamin D Total 38.0 ng/ mL N 30-5 [address] 25(Oh) 0 [place] [address] [phone] Laboratory test 01/24/2016 [facility] Occult Blood - pos x's 2, finding Stool neg 1 Lipid Profile 01/16/2016 [facility] Triglycerides 132 mg/dL N 24 (Trig/Chol/HDL) [address] [place] [address] [phone] Cholesterol 162 mg/dL N 25 HDL Cholesterol 50.5 mg/dL N 26 LDL Cholesterol 85 mg/dL N 27 Comp Metabolic Panel 01/16/2016 [facility] Sodium 141 mmol/L N 133-[address] [place] [address] [phone] Potassium 3.8 mmol/L N 3.5-5.0 Chloride 100 [...] 84.1 N >60 Egfr 108.2 N >60 28 Laboratory test 01/16/2016 [facility] Vitamin D Total 24.9 Low 30-50 [address] 25(Oh) ng/[place] [address] [phone] Laboratory test 04/08/2015 [facility] House Hemoglobin A1c 5.0 5-7 finding Lipid Profile 04/04/2015 Triglycerides 123 mg/dL N 30 (Trig/Chol/HDL) Cholesterol 157 mg/dL N 31 HDL Cholesterol 44.6 mg/dL N 32 LDL Cholesterol 88 mg/dL N 33 Comp Metabolic Panel 04/04/2015 Sodium 140 mmol/L [...] 90.4 N >60 Egfr 116.2 N >60 34 Laboratory test 04/04/2015 Vitamin D Total 31.5 ng/mL N 30-50 finding 25(Oh) Vitamin D, 25 06/14/2014 [facility] 25-Hydroxy <4.0 ng/mL N Hydroxy [address] Vitamin D2 [place] [address] [phone] 25-Hydroxy Vitamin D3 29 ng/mL N 25-Hydroxy Vitamin D Total 29 ng/mL N 35 Lipid Profile 06/14/2014 [facility] Triglycerides 123 mg/dL N 36 (Trig/Chol/HDL) [address] [place] [address] [phone] Cholesterol 158 mg/dL N 37 HDL Cholesterol 44.6 mg/dL N 38 LDL Cholesterol 89 mg/dL N 39 Comp Metabolic Panel 06/14/2014 [facility] Sodium 139 mmol/L N 133-145 [address] [place] [address] [phone] Potassium 3.8 mmol/L N 3.5-5.0 40 Chloride 101 mmol/L N 101-111 Co2 Carbon [...] 90.6 N >60 Egfr 116.6 N >60 41 1 SEE RESULT BELOW Name: RADHA NEELY : [address]: Juan Seals MD Acct: [id number] Unit: [id number] AGE: 72 Location: ENDO Re01/09/18 SEX: F Status: DEP REF SPEC: [id number] VLAD: 01/09/18-[address]: Juan Seals MD REQ: [id number] RECD: 01/09/18 STATUS: CANDIDA FAUSTIN DR: Thai Philip MD _ ORDERED: LEVEL [...] CONTINUED ON NEXT PAGE DEPARTMENT OF PATHOLOGY, [address] [place] [address] Aleksander Trevino M.D. Director KEN # [id number] RUN DATE: 01/10/18 [facility] LAB LIVE PAGE 2 Patient: RADHA NEELY [id number] (Continued) GROSS DESCRIPTION (Continued) GROSS DESCRIPTION (Continued) cassette. 3. The specimen is received in formalin labeled, Gastric Fundal Nodule Biopsy, and consists of three carpio-pink irregular to polypoid soft tissue fragments aggregating 0.6 by up to 0.5 x 0.3 cm which are submitted entirely in one cassette. Signed by and Reported on: Mariana Carbajal MD 01/10/18 1329 END OF REPORT DEPARTMENT OF PATHOLOGY, [address] [place] [address] Aleksander Trevino M.D. Director [facility] # [id number] 2 Because ethnic data is not always readily [...] 15-29 5 Kidney failure <15 (or dialysis) 3 Desirable: <150 Borderline High: 150-199 High: 200-499 Very High: >500 4 Desirable: <200 Borderline High: 200-239 High: >239 5 Low: <40 Desirable: 40-60 High: >60 6 Desirable: <100 Near Optimal: 100-129 Borderline High: 130-159 High: 160-189 Very High: >189 7 Desirable <150 Borderline high 150-199 High 200-499 Very High >500 8 Desirable <200 Borderline high 200-239 High >239 9 Low <40 Desirable: 40-60 High: >60 10 Desirable: <100 mg/dL Near Optimal: 100-129 mg/dL Borderline High: 130-159 mg/dL High: 160-189 mg/dL Very High: >189 mg/dL 11 Because ethnic data is not always readily [...] 15-29 5 Kidney failure <15 (or dialysis) 12 FASTING 12 HOUR 13 SEE RESULT BELOW Name: RADHA NEELY : [address]: Juan Seals MD Acct: [id number] Unit: [id number] AGE: 71 Location: ENDO Re12/28/16 SEX: F Status: DEP REF SPEC: [id number] VLAD: 12/28/[address] [facility] [address]: Juan Seals MD REQ: [id number] RECD: 12/28/16 STATUS: CANDIDA FAUSTIN DR: Thai Garcia MD [...] performed at Main Lab DEPARTMENT OF PATHOLOGY, [address] [place] [address] Aleksander Trevino M.D. Director [facility] # [id number] RUN DATE: 12/31/16 [facility] LAB LIVE PAGE 2 Patient: RADHA NEELY [id number] (Continued) GROSS DESCRIPTION (Continued) Signed (signature on file) Aleksander Trevino MD [id number] END OF REPORT * ML=Testing performed at Main Lab DEPARTMENT OF PATHOLOGY, [address] [place] [address] Aleksander Trevino M.D. Director [facility] # [id number] 14 SEE RESULT BELOW Name: RADHA NEELY : [address]: Juan Seals MD Acct: [id number] Unit: [id number] AGE: 70 Location: ENDO Re05/15/16 SEX: F Status: DEP REF SPEC: [id number] VLAD: 05/15/16-[address]: Juan Seals MD REQ: [id number] RECD: 05/15/16-542 STATUS: CANDIDA FAUSTIN DR: Lesli Yap MD [...] performed at Main Lab DEPARTMENT OF PATHOLOGY, [address] [place] [address] Aleksander Trevino M.D. Director [place] # [id number] RUN DATE: 05/16/16 [facility] LAB LIVE PAGE 2 Patient: RADHA NEELY [id number] (Continued) GROSS DESCRIPTION (Continued) GROSS DESCRIPTION 1. [...] performed at Main Lab DEPARTMENT OF PATHOLOGY, [address] [place] [address] Aleksander Trevino M.D. Director [facility] # [id number] 15 SEE RESULT BELOW Name: RADHA NEELY : [address]: Juan Seals MD Acct: [id number] Unit: [id number] AGE: 70 Location: ENDO Re05/15/16 SEX: F Status: REG REF SPEC: [id number] VLAD: 05/15/16-[address] [facility] [address]: Juan Seals MD REQ: [id number] RECD: 05/15/16 STATUS: DAVID FAUSTIN DR: Annette Stuart MD _ SOURCE: STOOL SPDESC: ORDERED: Hemoccult Procedure Result Reported Site Stool Occult Blood Final 05/15/16- 1321 ML Stool Occult Blood Negative * ML - [facility] ([facility]) . END OF REPORT * ML=Testing performed at Main Lab DEPARTMENT OF PATHOLOGY, [address] [place] [address] Aleksander Trevino M.D. Director [facility] # [id number] 16 SEE RESULT BELOW Name: RADHA NEELY : [address]: Humza Sanchez MD Acct: [id number] Unit: [id number] AGE: 70 Location: ED Re04/11/16 SEX: F Status: REG ER SPEC: [id number] VLAD: 04/11/16-[address] [facility] [address]: Humza Sanchez MD REQ: [id number] RECD: 04/11/16 STATUS: DAVID FAUSTIN DR: Annette Stuart MD _ SOURCE: STOOL SPDES: ORDERED: Hemoccult Procedure Result Reported Site Stool Occult Blood Final 04/11/16- 1035 ML Stool Occult Blood Negative * ML - MAIN LAB ([facility]) . END OF REPORT * ML=Testing performed at Main Lab DEPARTMENT OF PATHOLOGY, [address] [place] [address] Aleksander Trevino M.D. Director [facility] # [id number] 17 Because ethnic data is not always readily [...] 15-29 5 Kidney failure <15 (or dialysis) 18 Acute inflammation: >10.00 19 Reference Range and Interpretation: TnI (ng/mL) Interpretation Less Than 0.03 ng/mL Not supportive of diagnosis of CT 0.03 - 0.50 ng/mL Indeterminate: suggest serial studies if clinically indicated. Greater than 0.5 ng/mL Consistent with diagnosis of CT 20 [id number] 21 SEE RESULT BELOW Name: RAMÍREZ NEELYINE : [address]: Juan Seals MD Acct: [id number] Unit: [id number] AGE: 70 Location: [facility] Re04/09/16 SEX: F Status: DEP REF SPEC: [id number] VLAD: 04/09/16-[address] [facility] [address]: Juan Seals MD REQ: [id number] RECD: 04/09/16992 STATUS: CANDIDA FAUSTIN DR: Annette Stuart MD _ ORDERED: CHROMOGRANIN A, LEVEL IV, SYNA-ADD, GF14-ZTQ, [id number], EM136-JNV COMMENTS: [id number] FINAL DIAGNOSIS Stomach, greater curvature, biopsies: -- [...] performed at Main Lab DEPARTMENT OF PATHOLOGY, [address] [place] [address] Aleksander Trevino M.D. Director [facility] # [id number] RUN DATE: 04/11/16 [facility] LAB LIVE PAGE 2 Patient: RADHA NEELY [id number] (Continued) CLINICAL HISTORY (Continued) CLINICAL HISTORY Usual [...] Signed (signature on file) Aleksander Trevino MD 5635 END OF REPORT * ML=Testing performed at Main Lab DEPARTMENT OF PATHOLOGY, [address] [place] [address] Aleksander Trevino M.D. Director [facility] # [id number] 22 SEE RESULT BELOW Name: RADHA NEELY : [address]: Juan Seals MD Acct: [id number] Unit: [id number] AGE: 70 Location: ENDOCEC Re04/09/16 SEX: F Status: REG REF SPEC: [id number] VLAD: 04/09/16-[address]: Juan Seals MD REQ: [id number] RECD: 04/09/16 STATUS: COMP OTHR DR: Annette Stuart MD _ SOURCE: GAS ANTRUM SPDESC: ORDERED: Clotest Procedure Result Reported Site Clotest Final 04/10/16718 ML Clotest Negative * ML - MAIN LAB ([facility]) . END OF REPORT * ML=Testing performed at Main Lab DEPARTMENT OF PATHOLOGY, [address] [place] [address] Aleksander Trevino M.D. Director [facility] # [id number] 23 [id number] 24 Desirable <150 Borderline high 150-199 High 200-499 Very High >500 25 Desirable <200 Borderline high 200-239 High >239 26 Low <40 Desirable: 40-60 High: >60 27 Desirable: <100 mg/dL Near Optimal: 100-129 mg/dL Borderline High: 130-159 mg/dL High: 160-189 mg/dL Very High: >189 mg/dL 28 Because ethnic data is not always readily [...] 15-29 5 Kidney failure <15 (or dialysis) 29 [id number] FASTING 10 HOUR 30 Desirable <150 Borderline high 150-199 High 200-499 Very High >500 31 Desirable <200 Borderline high 200-239 High >239 32 Low <40 Desirable: 40-60 High: >60 33 Desirable: <100 mg/dL Near Optimal: 100-129 mg/dL Borderline High: 130-159 mg/dL High: 160-189 mg/dL Very High: >189 mg/dL 34 Because ethnic data is not always readily [...] 15-29 5 Kidney failure <15 (or dialysis) 35 REFERENCE VALUE 25-HYDROXY D TOTAL (D2+D3) Optimum levels in the healthy population are 20-50, patients with bone disease may benefit from higher levels within this range. Test Performed by: [facility] [place] [address] R&D Engineer: Angelo Perera M.D. 36 Desirable <150 Borderline high 150-199 High 200-499 Very High >500 37 Desirable <200 Borderline high 200-239 High >239 38 Low <40 Desirable: 40-60 High: >60 39 Desirable <100 Near Optimal 100-129 Borderline high 130-159 High 160-189 Very High >189 40 Potassium reference range changed effective 05/23/14 41 Because ethnic data is not always readily [...] dialysis) Procedures Date Code Description Status 06/05/2018 80276 EKG Tracing & Interpretation Completed 12/13/2017 [id number] Mammogram Completed 10/23/2017 62941 Inject/Drain Joint/Bursa Major W/O US Completed 06/19/2017 29455 Inject/Drain Joint/Bursa Major W/O US Completed 02/13/2017 94870 Inject/Drain Joint/Bursa Major W/O US Completed 01/24/2017 54996 EKG Tracing & Interpretation Completed 10/10/2016 23982 Inject/Drain Joint/Bursa Major W/O US Completed 05/09/2016 50874 Inject/Drain Joint/Bursa Major W/O US Completed 04/09/2016 59067851 Colonoscopy Completed 01/25/2016 48866931 Mammogram Completed 01/12/201662072 Inject/Drain Joint/Bursa Major W/O US Completed 08/24/2015 15890 Inject/Drain Joint/Bursa Major W/O US Completed 04/27/2015 07738 Inject/Drain Joint/Bursa Major W/O US Completed 01/21/2015 88261372 Mammogram Completed 01/20/2015 638251708 Bone Mineral Density Test Completed 03/11/2014 45187902 Mammogram Completed 03/10/2014 057465245 Diabetic Retinal Eye Exam Completed 02/03/2014 77227719 Mammogram Completed Encounters Type Date Location Provider Dx Diagnosis Office Visit 03/26/2018 Orthopedic Luke Garcia, M17.0 Bilateral primary 11:30a [facility] osteoarthritis of knee Office Visit 11/18/2017 [facility] Internal Belia Philip, I10 Essential ( primary) 10:10a Medicine - M.D. hypertension [place] R25.2 Cramp and spasm E78.5 Hyperlipidemia, unspecified Z12.31 Encntr screen mammogram for malignant neoplasm of breast Office Visit 05/09/2016 Roque Butler M17.0 Bilateral primary 9:15a [facility] Garcia osteoarthritis of [facility] knee Office Visit 04/18/2016 [facility] Internal Tye Butler, L03.313 Cellulitis of chest 12:40p Medicine - [place] [address] Office Visit 08/24/2015 [facility]opedic Luke M17.12 Unilateral primary 8:15a [facility] Garcia osteoarthritis, [facility] left knee M25.561 Pain in right knee Office Visit 08/12/2015 9:00a [facility] Annette J01.90 Acute sinusitis , Elda Stuart M.D. unspecified [place] Office Visit 04/08/2015 10:40a Trena Bryant 272.4 Hyperlipidemia Other Elda Stuart M.D. Unspec [place] 728.71 Fibromatosis Plantar Fascia 790.6 Abnormal Blood Chemistry Other Office Visit 02/02/2015 Orthopedic Luke 715.96 Osteoarthrosis 8:00a [facility] Garcia Unspec [place] Or [facility] Localized Lower Leg Office Visit 01/06/2015 Trena Stuart, V70.0 Examination General 9:00a Elda Berg M.D. Medical Routine AT [facility] 401.9 Hypertension Unspec 272.4 Hyperlipidemia Other Unspec 627.9 Menopausal & Postmenopausal Disorder Unspec V76.19 Screening Breast Exam Malignant Neoplasms Other 717.9 Internal Derangement Knee Unspec 611.79 Breast Signs & Symptoms Other V03.82 Streptococcus Pneumoniae Vaccination Spec Other V06.1 Ydgvymjbnt-Muyrcmm-Wvnfmelj Combined (DTaP) Office Visit 06/24/2014 10:00a [facility] Annette Stuart, 401.9 Hypertension Unspec Medicine - [facility] [place] 272.4 Hyperlipidemia Other Unspec 300.09 Anxiety States Other 726.5 Enthesopathy Of Hip Region Office Visit 01/21/2014 1:40p [facility] Annette Stuart, 401.9 Hypertension Unspec Medicine - [facility] [place] 272.4 Hyperlipidemia Other Unspec V76.19 Screening Breast Exam Malignant Neoplasms Other 367.1 Myopia V04.89 Need For Prophylactic Vaccination & Inoculation Other Virus Plan of Treatment Future Appointment(s):06/18/2018 8:00 am - Luke Garcia M.D. at [facility]06/30/2018 7:30 am - Luke Garcia M.D. at [facility]06/05/2018 - Belia Philip M.D.Z01.818 Encounter for other preprocedural examinationComments:undergoing elective procedure of L knee replacement , has no active cardiac conditions , low risk for major adverse events , advised to proceed with upcoming procedure , post operative anticoagulation to be addressed by Dr. Garcia Advised patient to stop NSAIDs a week before the procedure CC to Dr. GarciaM17.0 Bilateral primary osteoarthritis of kneeE78.5 Hyperlipidemia, unspecifiedComments:on statin , [id number] Essential (primary) hypertensionComments:stable with fovzzghrnhW56.020 Personal history of malignant carcinoid tumor of stomach
[2018-06-30] MEDS ORDERED: Buffered Lidocaine 0.9% SYRIN* 5 ML/SYR SYRINGE INTRADERM ONE (06:00)
[2018-06-30] MEDS ORDERED: Gabapentin CAP(*) 300 MG PO ONE (06:00)
[2018-06-30] MEDS ORDERED: Acetaminophen TAB* 325 MG PO ONE (06:00)
[2018-06-30] MEDS ORDERED: Famotidine IV* 10 MG/ML 2 ML (20 mg) IV ONE (06:00)
[2018-06-30] MEDS ORDERED: celeCOXIB CAP* 200 MG PO ONE (06:00)
[2018-06-30] MEDS ORDERED: Acetaminophen TAB* 325 MG ONE (06:15)
[2018-06-30] MEDS ORDERED: ceFAZolin 2 GM PREMIX in ORs 2 GM/50 ML BAG IVPB ONE (06:15)
[2018-06-30] MEDS ORDERED: celeCOXIB CAP* 100 MG ONE (06:15)
[2018-06-30] MEDS ORDERED: Famotidine IV* 10 MG/ML 2 ML (20 mg) ONE (06:15)
[2018-06-30] MEDS ORDERED: Gabapentin CAP(*) 300 MG ONE (06:34)
[2018-06-30] MEDS ORDERED: KETAMINE HCL* 50 MG/ML 10 ML VIAL ONE (07:01)
[2018-06-30] MEDS ORDERED: fentaNYL* 50 MCG/ML 2 ML VIAL (100 MCG VIAL) ONE ×5 (07:01→11:45)
[2018-06-30] MEDS ORDERED: Propofol* 10 MG/ML 20 ML BTL ONE (07:01)
[2018-06-30] MEDS ORDERED: Ondansetron INJ* 2 MG/ML VIAL ONE (07:01)
[2018-06-30] MEDS ORDERED: Dexamethasone IV* 4 MG/ML 1 ML (4 MG) ONE (07:01)
[2018-06-30] MEDS ORDERED: ROPIVACAINE 5 MG/ML 30 ML BTL (0.5%) ONE (07:01)
[2018-06-30] MEDS ORDERED: Lidocaine 2% PF * 5 ML VIAL ONE (07:01)
[2018-06-30] MEDS ORDERED: Midazolam* 1 MG/ML 10 ML VIAL (10 MG) ONE (07:01)
[2018-06-30] MEDS ORDERED: Tranexamic Acid 1,000 MG in NS 0.9% 50 ML IV ONE (07:30)
[2018-06-30] MEDS ORDERED: Bupivacaine 0.25% EPI 200,000* 30 ML SDV ONE (07:33)
[2018-06-30] MEDS ORDERED: EPHEDrine (Pressors)* 50 MG/ML VIAL ONE (08:02)
[2018-06-30] MEDS ORDERED: HYDROmorphone INJ1* 1 MG/ML SYRINGE IV PRN (08:48)
[2018-06-30] MEDS ORDERED: Ondansetron INJ* 2 MG/ML VIAL IV PRN (08:48)
[2018-06-30] MEDS ORDERED: Naloxone* 0.4 MG/ML 1 ML VIAL IV PRN (08:48)
[2018-06-30] MEDS ORDERED: HYDROmorphone INJ1* 1 MG/ML SYRINGE ONE (09:03)
[2018-06-30] MEDS ORDERED: diPHENhydraMINE IV* 50 MG/ML 1 ml VIAL (BENADRYL) IV PRN (09:44)
[2018-06-30] MEDS ORDERED: Magnesium Hydroxide LIQ* 30 ML UDC PO PRN (09:44)
[2018-06-30] MEDS ORDERED: diPHENhydraMINE PO* 25 MG PO PRN (09:44)
[2018-06-30] MEDS ORDERED: Cyclobenzaprine TAB* 10 MG PO PRN (09:44)
[2018-06-30] MEDS: fentaNYL* 50 MCG/ML 2 ML VIAL (100 MCG VIAL) IV PRN ×2 (10:57→11:20)
[2018-06-30] MEDS: D5W 1/2 NS 1000 ML BAG* 1,000 ML IV SCH ×2 (12:09→21:37)
--- NOTE | 2018-06-30 12:27 | OP ---
DATE OF OPERATION: 06/30/18 - ROOM #348 DATE OF : 45 SURGEON: Luke Garcia MD UNDERWRITING ASSISTANT: SHAYE Grant ANESTHESIA: Regional and general. PRE-OP DIAGNOSIS: Osteoarthritis, left valgus knee. POST-OP DIAGNOSIS: Osteoarthritis, left valgus knee. OPERATIVE PROCEDURE: Left total knee arthroplasty. INDICATIONS: Mrs. Mcdermott is a 72-year-old female, who has a long history of troubles with both of her knees. The left is worse than the right and she had been treated conservatively with physical therapy, anti-inflammatories and injections and these have worked well until recently. She presented to the office reporting that the left knee is just not doing as well as it always had and it was starting to interfere with even doing simple ADLs. She was completely [id number] in the lateral compartment with a valgus deformity and had significant spurring and sclerosis in all three compartments. I discussed with her that total knee arthroplasty should work well to decrease her pain and improve her function. Risks of surgery such as infection, scar formation, stiffness, DVT, pulmonary embolism, hardware failure, and continued pain were some of the risks discussed. She had been declared medically optimized. ESTIMATED BLOOD LOSS: Less than 50 cc. COMPLICATIONS: None. HARDWARE: Mina Persona #7 femur, E tibia, 10 mm polyethylene, 32 mm all- polyethylene patellar button. DESCRIPTION OF PROCEDURE: The patient had a block placed in the holding area and was brought back to the OR. LMA was then placed. Prather catheter and tourniquet were also placed. Total tourniquet time would be approximately 65 minutes. Of note, Annette Cifuentes, was present throughout the case from positioning to the approach to dissection, placement of the implants and then closure and the case could not have been done without an assistance. Left knee was prepped and then draped. Esmarch was used to exsanguinate the leg and the tourniquet was raised. Midline incision was made, centered about the patella and carried to the medial side of the tibial tubercle. I came a little more lateral than usual so that I made sure I would have good exposure. Incision was carried down through the skin and subcutaneous tissues. Small bleeders encountered were ligated using electrocautery. Extensor mechanism was exposed and a sharp parapatellar arthrotomy was made. Quite a bit of clear yellowish joint fluid was encountered. Arthritic change was immediately evident. Fat pad was sharply excised and I just took down a little bit from the medial capsule to allow for exposure rather than the full release that I usually do. Patella measured 22 mm in thickness and a nice 10 mm cut was taken. Patella was then easily subluxated laterally and the knee was flexed up. Nice exposure of the distal femur was obtained. Step drill was used to open up the femoral canal and intramedullary guide was placed. This had been set to resect 2 mm and had been set at 4 degrees. Distal femoral cutting guide was then pinned into place and the intramedullary guide was removed. The cut appeared to be good as this just barely skived along the lateral femoral condyle and took a little more from the medial side. Femur was then sized and she sat nicely for a 7. Holes were drilled and cutting block was placed. Superior hole was run and it appeared that I would not be notching the femur. Anterior and posterior femoral cuts were then taken as were then chamfer cuts. Attention was turned to the proximal tibia. Step drill was used to open up the tibial canal and intramedullary guide was placed. Outrigger was adjusted until it appeared it would take 2 mm from the worn lateral side. Alignment zulema was dropped and alignment appeared to be very good. Cutting was then pinned into place and the proximal tibial cut was taken. It appeared a nice cut was obtained. A 10 mm block was then placed and this was lose in flexion as the system was designed to take an extra 2 mm from the posterior condyles and with coming out in flexion , she was very good. There was just a tiny bit of play and it could be seen where I needed to take just a little bit from the lateral femoral condyle to get a nice square extension gap. About a millimeter was taken from the lateral side and this was then evened out. 7 cutting block was replaced and the chamfer cuts were recut. Now with a 10 spacer block, she came out nicely into full extension, had no wobble and flexed quite easily. Tibia was sized and an E sat very nicely. Proximal tibia was drilled and then punched. Trial femur was placed and the notch cut was finished and the stud holes were drilled. With a 10 trial, she came out nicely into full extension, easily flexed and was stable throughout. Patella went into sublux sometimes. Patella was sized and the 32 sat very nicely. Holes were drilled and trial was snapped into place. With the trial in, patellar tracking was perfect. Knee was copiously lavaged and trial instrumentation was removed. Local was then used with 10 cc of 0.25% Marcaine with epinephrine behind the medial femoral condyle and another 10 behind the lateral femoral condyle and then another 10 deep into the lateral gutter of the knee. Cement was being prepared. Tibia followed by femur and patella were all cemented into place. Excess cement was removed and the cement was allowed to harden. Once the cement had hardened, the knee was searched for excess cement and a few small pieces were found. Knee was again copiously pulse lavaged. She was then trialed with a 10 polyethylene and had the same wonderful motion and stability. 10 polyethylene was then snapped into place. Knee was again copiously pulse lavaged and parapatellar arthrotomy was repaired using interrupted #1 Vicryl sutures. Tourniquet was let down and no significant bleeding was encountered. Knee was again pulse lavaged and the subcutaneous tissues were reapproximated using 2-0 Vicryl. Skin was closed using edis. Sterile dressing and Cryo/Cuff were applied in the OR. The patient had the LMA removed in the OR and was stable on transfer to the recovery room. [id number]/[facility] #: [id number] JESSICA
[2018-06-30] MEDS: Acetaminophen TAB* 325 MG PO SCH ×2 (13:44→21:35)
[2018-06-30] MEDS: traMADol TAB* 50 MG PO SCH ×2 (13:45→19:32)
[2018-06-30] MEDS ORDERED: Morphine VIAL* 4 MG/ML VIAL (1 ml vial) IV PRN (13:45)
[2018-06-30] MEDS: ceFAZolin 1 GM ADVAN(*) 1 GM in NS 0.9% 50 ML* 50 ML IVPB SCH (16:49)
[2018-06-30] MEDS ORDERED: Warfarin TAB(*) 10 MG PO ONE (17:00)
[2018-06-30] MEDS: Docusate CAP* 100 MG PO SCH (19:32)
[2018-06-30] MEDS: Magnesium Hydroxide LIQ* 30 ML UDC PO SCH (19:45)
[2018-06-30] MEDS: oxyCODONE TAB* 5 MG TAB PO PRN (20:39)
[2018-07-01] MEDS: ceFAZolin 1 GM ADVAN(*) 1 GM in NS 0.9% 50 ML* 50 ML IVPB SCH ×2 (00:47→07:54)
--- NOTE | 2018-07-01 00:59 | CONS ---
CC: Dr. Luke Garcia; Dr. Belia Philip* CONSULTATION REPORT: DATE OF ADMISSION: 06/30/18 DATE OF CONSULTATION: 06/30/18 PRIMARY CARE PROVIDER: Dr. Belia Philip. PROVIDER REQUESTING CONSULTATION: Dr. Luke Garcia. ATTENDING PHYSICIAN: Dr. Lamar (dictated by Jeanie Coulter NP) . REASON FOR CONSULTATION: Co-medical management. The patient with a history of hyperlipidemia and hypertension. HISTORY OF PRESENT ILLNESS: Ms. Mcdermott is a 72-year-old female with past medical history significant for gastritis, hiatal hernia, diverticulitis, uterine cancer, osteoarthritis of bilateral knees, hyperlipidemia, hypertension , gastric carcinoid tumor, morbid obesity with a BMI of 30, who presented to the hospital today for an elective left total knee arthroplasty with Dr. Luke Garcia. Preoperatively, the patient states that she has been in her usual state of health. She denies any fevers, chills, chest pain, shortness of breath , nausea, vomiting, diarrhea. She reports she has had chronic left knee pain. Postoperatively, she is doing well. Pain is controlled. She has no complaints. Hospitalists were asked to assist with co-medical management of this patient during her hospitalization. PAST MEDICAL HISTORY: 1. Gastritis, no history of ulcerations. 2. Hiatal hernia. 3. Diverticulosis. 4. Uterine carcinoma. 5. Bilateral knee osteoarthritis. 6. Myopia. 7. Hyperlipidemia. 8. Hypertension. 9. Gastric carcinoid tumor. 10. Obesity with BMI of 30. PAST SURGICAL HISTORY: 1. Status post total hysterectomy and bilateral salpingo-oophorectomy. 2. Status post left lobe thyroidectomy. 3. Status post tonsillectomy and adenoidectomy. 4. Status post left knee arthroscopy. HOME MEDICATIONS: Include: 1. Acetaminophen 500 mg oral as needed for pain. 2. Pravastatin 20 mg oral daily. 3. Losartan/hydrochlorothiazide 100/25 one tablet oral daily. 4. Ibuprofen 200 mg oral every 6 hours as needed for pain. ALLERGIES: No known drug allergies. FAMILY HISTORY: The patient's father had a history of Parkinson's. Brother with a history of AR, age 65. No family history of diabetes or cancer. SOCIAL HISTORY: The patient denies tobacco, alcohol, or recreational drug use. She has a friend, who will stay with her postoperatively. Her daughter, Radha Mcdermott, will be her surrogate decision maker in the event she is unable to make decisions for herself. REVIEW OF SYSTEMS: I performed an 11-point review of systems. All the pertinent positives and negatives are mentioned in the history of present illness. Remaining of review of systems are negative. PHYSICAL EXAMINATION: Vital Signs: Temperature 98.0, heart rate 69, respiratory rate 16, O2 sat 99% on room air, blood pressure 147/61. General Appearance: The patient is alert, pleasant, appears to be in no acute distress. HEENT: Normocephalic, atraumatic. Pupils are equal and reactive to light. Extraocular movements are intact. Respiratory: There is no accessory muscle use. Lungs are clear to auscultation bilaterally. Cardiovascular: Regular rate and rhythm. S1, S2 present. There are no murmurs, rubs, or gallops. Abdomen: Soft, nontender, nondistended. Bowel sounds present x4. Extremities: There is no lower extremity edema. DP and PT pulses are 2+ and symmetric. Musculoskeletal: There is no clubbing or cyanosis noted. The patient exhibits good strength in all extremities. Neurological: She is alert and oriented x4. Cranial nerves II through XII are grossly intact. Psychological: She is calm and cooperative. Skin: There are no rashes or abnormalities. She has a dressing to her left knee that is clean, dry, and intact. DIAGNOSTIC STUDIES/LAB DATA: Preoperative labs from 06/17/18: Sodium 140, potassium 3.4, chloride 102, CO2 of 30, BUN 19, creatinine 0.68, glucose 92. White blood cell count 7.0, hemoglobin 15.8, hematocrit 46, platelet count 268. Urinalysis and urine culture negative. IMPRESSION: Ms. Mcdermott is a 72-year-old female with past medical history significant for hyperlipidemia, hypertension, who presented to the hospital for an elective left total knee arthroplasty with Dr. Garcia today. The Hospitalists were asked to assist with co-medical management of this patient during her hospitalization. ASSESSMENT AND PLAN: 1. Status post left total knee arthroscopy. Postop day. Management will be per Orthopedic Surgery. She will have a urinary catheter in place until the morning. She will have PT/OT. The patient will have pain medication, be placed on bowel regimen. 2. Hypertension. The patient has been slightly hypertensive with systolic blood pressures in the 130s to 170s in her postoperative period. I suspect this is secondary to holding her losartan this morning. We are going to continue on her losartan, hold her hydrochlorothiazide for now. I suspect this can be resumed in the morning as long as she continues to be normotensive. 3. Hyperlipidemia. She will be continued on her home pravastatin or auto substitute. 4. History of gastritis. Cautious use with NSAIDs or aspirin. 5. Diverticulitis. No current issue. 6. History of a gastric carcinoid tumor and uterine cancer. Continue to follow up with PCP. 7. Obesity. BMI of 30. 8. Fluids, electrolytes, and nutrition. She will be on a clear liquid, advance diet as tolerated to a heart-healthy diet. 9. DVT prophylaxis. She will have warfarin per Orthopedics. 10. Code status. Full code. 11. Disposition: Disposition per Orthopedic Surgery. TIME SPENT: Time for this consultation was approximately 50 minutes, greater than half that was spent with the patient discussing medications, past medical history, the events leading up to her arrival today, and performing a physical examination. The case has been reviewed with the attending, Dr. Lamar, who agrees with the plan of care. JEANIE COULTER, NICK [id number]/[facility] #: [id number] JESSICA
[2018-07-01] MEDS: traMADol TAB* 50 MG PO SCH ×4 (01:29→19:37)
[2018-07-01 05:14] LABS: Hematocrit 35 % (35-47); Mean Platelet Volume 7.5 fL (7.4-10.4); Platelet Count 194 10^3/ul (150-450)
[2018-07-01 05:23] LABS: INR 1.05 (0.77-1.02)
[2018-07-01 05:31] LABS: EGFR Non-African American 94.6 (>60)
[2018-07-01] MEDS: Acetaminophen TAB* 325 MG PO SCH ×3 (05:32→22:45)
[2018-07-01] MEDS: D5W 1/2 NS 1000 ML BAG* 1,000 ML IV SCH (07:47)
[2018-07-01] MEDS: oxyCODONE TAB* 5 MG TAB PO PRN ×3 (07:48→17:15)
--- NOTE | 2018-07-01 10:18 | PN ---
Progress Note - Progress Note Date of Service: 07/01/18 SOAP: Subjective: []Patient seen and examined at bedside. She feels well with well controlled left knee pain. She is progressing well with PT having walked the unit but has not met her PT goals yet. Denies chest pain, shortness of breath, dizziness, nausea or history of blood clot. Objective: []General: Well appearing, NAD LLE: Left knee dressing CDI, cryo unit intact, thigh is soft, DF/PF intact, DP2+ , sensation intact to light touch distally. Calves are supple and nontender without erythema, edema or palpable cords Assessment: []POD 1 sp left total knee arthroplasty 07/02 Dr Garcia Plan: []WBAT PT/OT daily dressing change starts 07/02 Plan for DC to home 07/02 as long as PT goals are met Heparin, coumadin. Coumadin 8 mg today Potassium is low, stop IV fluids and replace today, recheck tomorrow Vital Signs Temp 98.0 F 07/01/18 03:22 Pulse 69 07/01/18 03:22 Resp 16 07/01/18 07:48 BP 121/54 07/01/18 03:22 Pulse Ox 97 07/01/18 03:22 Intake & Output 06/30/18 07/01/18 07/01/18 18:59 06:59 18:59 Intake Total 2650 1890 1295 Output Total 550 2150 Balance 2100 -260 1295 Intake: IV Fluids 0 920 975 D5W 1/2 NS 920 975 LR 2000 NS 50ML, Cefazolin 2G 50 IVPB 110 ABX - CEFAZOLIN 110 Oral 600 860 320 Output: Prather 550 2150 Laboratory Last Values Hgb 12.0 g/dl (12.0-16.0) 07/01/18 05:04 Hct 35 % (35-47) 07/01/18 05:04 Plt Count 194 10^3/ul (150-450) 07/01/18 05:04 MPV 7.5 fL (7.4-10.4) 07/01/18 05:04 INR (Anticoag Therapy) 1.05 (0.77-1.02) H 07/01/18 05:04 Sodium 140 mmol/L (135-145) 07/01/18 05:04 Potassium 3.2 mmol/L (3.5-5.0) L 07/01/18 05:04 Chloride 105 mmol/L (101-111) 07/01/18 05:04 Carbon Dioxide 30 mmol/L (22-32) 07/01/18 05:04 Anion Gap 5 mmol/L (2-11) 07/01/18 05:04 BUN 9 mg/dL (6-24) 07/01/18 05:04 Creatinine 0.62 mg/dL (0.51-0.95) 07/01/18 05:04 Est GFR ( Amer) 114.5 (>60) 07/01/18 05:04 Est GFR (Non-Af Amer) 94.6 (>60) 07/01/18 05:04 BUN/Creatinine Ratio 14.5 (8-20) 07/01/18 05:04 Glucose 145 mg/dL (70-100) H 07/01/18 05:04 POC Glucose (mg/dL) 119 mg/dL (70-100) H 07/01/18 07:59 Calcium 8.3 mg/dL (8.6-10.3) L 07/01/18 05:04
[2018-07-01] MEDS: Magnesium Hydroxide LIQ* 30 ML UDC PO SCH ×2 (11:06→19:37)
[2018-07-01] MEDS: Potassium Chlor TAB* 20 MEQ TAB.ER PO SCH (11:06)
[2018-07-01] MEDS: Losartan TAB* 25 MG PO SCH (11:06)
[2018-07-01] MEDS: Docusate CAP* 100 MG PO SCH ×2 (11:06→19:36)
[2018-07-01] MEDS: Heparin VIAL(*) 5000 UNITS/ML VIAL (FIVE THOUSAND) SUBCUT SCH ×2 (12:57→19:37)
--- NOTE | 2018-07-01 13:54 | PN ---
Subjective Date of Service: 07/01/18 Interval History: Sitting in recliner on assessment. Reports pain in left knee is well controlled with current pain medication. Denies cp, sob, palpitations, dizziness, lightheadedness with position changes or at rest, n/v/d. Objective Active Medications: Acetaminophen (Tylenol Tab*) 975 mg PO Q8H [facility] Last Admin: 07/01/18 05:32 Dose: 975 mg Atorvastatin Calcium (Lipitor*) 5 mg PO EVERY OTHER DAY [facility]; Protocol Cyclobenzaprine HCl (Flexeril Tab*) 10 mg PO TID PRN PRN Reason: SPASMS Last Admin: 06/30/18 22:45 Dose: 10 mg Diphenhydramine HCl (Benadryl Iv*) 25 mg IV Q6H PRN PRN Reason: itching Diphenhydramine HCl (Benadryl Po*) 25 mg PO Q6H PRN PRN Reason: itching Docusate Sodium (Colace Cap*) 100 mg PO BID [facility] Last Admin: 07/01/18 11:06 Dose: 100 mg Heparin Sodium (Porcine) (Heparin Vial(*)) 5,000 units SUBCUT Q8H [facility] Last Admin: 07/01/18 12:57 Dose: 5,000 units Dextrose/Sodium Chloride (D5w 1/2 Ns 1000 Ml Bag*) 1,000 mls @ 100 mls/hr IV PER RATE [facility] Last Admin: 07/01/18 07:47 Dose: 100 mls/hr Losartan Potassium (Cozaar Tab*) 100 mg PO DAILY [facility] Last Admin: 07/01/18 11:06 Dose: 100 mg Magnesium Hydroxide (Milk Of Magnesia Liq*) 30 ml PO BID [facility] Last Admin: 07/01/18 11:06 Dose: 30 ml Magnesium Hydroxide (Milk Of Magnesia Liq*) 30 ml PO Q6H PRN PRN Reason: constipation Morphine Sulfate (Morphine Vial*) 2 mg IV Q4H PRN PRN Reason: PAIN - UNRELIEVED Oxycodone HCl (Roxycodone Tab*) 10 mg PO Q4H PRN PRN Reason: PAIN - SEVERE Last Admin: 07/01/18 12:57 Dose: 10 mg Pharmacy Profile Note (Coumadin Daily Reminder*) 1 note FOLLOW UP 1700 [facility] Potassium Chloride (Klor Con Er Tab*) 20 meq PO DAILY [facility] Last Admin: 07/01/18 11:06 Dose: 20 meq Tramadol HCl (Ultram*) 50 mg PO Q6H [facility] Last Admin: 07/01/18 07:47 Dose: 50 mg Warfarin Sodium (Coumadin Tab(*)) 8 mg PO ONCE@1700 [facility]; Protocol Stop: 07/01/18 17:01 Vital Signs - 8 hr 07/01/18 07/01/18 07/01/18 07:10 07:47 07:48 Temperature 97.8 F Pulse Rate 66 Respiratory 16 16 16 Rate Blood Pressure 109/52 (mmHg) O2 Sat by Pulse 97 Oximetry 07/01/18 12:57 Temperature Pulse Rate Respiratory 18 Rate Blood Pressure (mmHg) O2 Sat by Pulse Oximetry Oxygen Devices in Use Now: None Appearance: Comfortable, NAD Eyes: No Scleral Icterus Ears/Nose/Mouth/Throat: Clear Oropharnyx, Mucous Membranes Moist Neck: NL Appearance and Movements; NL JVP Respiratory: Symmetrical Chest Expansion and Respiratory Effort, Clear to Auscultation Cardiovascular: NL Sounds; No Murmurs; No JVD, RRR, No Edema Abdominal: NL Sounds; No Tenderness; No Distention Extremities: No Edema Skin: No Rash or Ulcers, - - Dressing to Left Knee CDI Neurological: Alert and Oriented x 3 Nutrition: Taking PO's Result Diagrams: 07/01/18 05:04 07/01/18 05:04 Additional Lab and Data: Laboratory Results - last 24 hr 07/01/18 07/01/18 07/01/18 05:04 05:04 05:04 Hgb 12.0 Hct 35 Plt Count 194 MPV 7.5 INR (Anticoag Therapy) 1.05 H Sodium 140 Potassium 3.2 L Chloride 105 Carbon Dioxide 30 Anion Gap 5 BUN 9 Creatinine 0.62 Est GFR ( Amer) 114.5 Est GFR (Non-Af Amer) 94.6 BUN/Creatinine Ratio 14.5 Glucose 145 H POC Glucose (mg/dL) Calcium 8.3 L 07/01/18 07:59 Hgb Hct Plt Count MPV INR (Anticoag Therapy) Sodium Potassium Chloride Carbon Dioxide Anion Gap BUN Creatinine Est GFR ( Amer) Est GFR (Non-Af Amer) BUN/Creatinine Ratio Glucose POC Glucose (mg/dL) 119 H Calcium Assess/Plan/Problems-Billing Assessment: 72 yr old female with pmh of gastritis, hiatel hernia, diverticulitis, uterine cancer, osteoarthritis, hld, htn, gastric tumor, and obestiy; who is sp left total knee arthroplasty - Patient Problems (1) History of total left knee replacement (TKR) Comment: - Management per ortho team (2) Electrolyte abnormality Comment: - Potassium 3.2 and ortho pa has ordered oral replacement and plans to recheck tomorrow (3) Hyperlipidemia Comment: - Cont statin (4) HTN (hypertension) Comment: - Continue losartan - Hold HCTZ as bp was mildly low today. (5) DVT (deep venous thrombosis) Comment: - Per ortho team (warfarin) (6) Full code status Comment: - Full Code Attending: Eddie De León
[2018-07-01] MEDS ORDERED: Warfarin TAB(*) 4 MG PO ONE (17:00)
[2018-07-02] MEDS: traMADol TAB* 50 MG PO SCH ×2 (01:37→07:45)
[2018-07-02] MEDS: Heparin VIAL(*) 5000 UNITS/ML VIAL (FIVE THOUSAND) SUBCUT SCH ×2 (04:17→11:57)
[2018-07-02 05:57] LABS: Hematocrit 34 % (35-47); Mean Platelet Volume 7.8 fL (7.4-10.4); Platelet Count 185 10^3/ul (150-450)
[2018-07-02 06:04] LABS: INR 1.81 (0.77-1.02)
[2018-07-02] MEDS: Acetaminophen TAB* 325 MG PO SCH (06:33)
[2018-07-02] MEDS: Magnesium Hydroxide LIQ* 30 ML UDC PO SCH (08:21)
[2018-07-02] MEDS: Docusate CAP* 100 MG PO SCH (08:22)
[2018-07-02] MEDS: Losartan TAB* 25 MG PO SCH (08:22)
[2018-07-02] MEDS: Potassium Chlor TAB* 20 MEQ TAB.ER PO SCH (08:22)
[2018-07-02] MEDS ORDERED: Atorvastatin* 10 MG TAB PO SCH (09:00)
--- NOTE | 2018-07-02 09:56 | PN ---
Progress Note - Progress Note Date of Service: 07/02/18 SOAP: Subjective: [] Patient was seen and examined at bedside. She feels well and desires DC home today. Denies CP, SOB, dizziness, nausea. She has walked the unit but has not done stairs with PT, she does not have stairs at home. Objective: [] General: Well appearing, NAD LLE: Left knee dressing changed, incision is CDI, cryo unit intact, thigh is soft, DF/PF intact, DP2+, sensation intact to light touch distally. Calves are supple and nontender without erythema, edema or palpable cords Assessment: [] POD 2 sp left total knee arthroplasty 06/30 Dr Garcia Plan: []WBAT PT/OT Daily dressing change started 07/02 DC to home today 07/02 as long as PT goals are met Heparin, coumadin. Coumadin 6 mg today Potassium trending towards normal, replace again today then D/C and recheck outpt within the week Continue IS use Vital Signs Temp 99.1 F 07/02/18 07:24 Pulse 77 07/02/18 07:24 Resp 16 07/02/18 08:00 BP 112/51 07/02/18 07:24 Pulse Ox 93 07/02/18 08:00 Intake & Output 07/01/18 07/02/18 07/02/18 18:59 06:59 18:59 Intake Total 1615 1700 460 Output Total 500 600 300 Balance 1115 1100 160 Intake: IV Fluids 975 D5W 1/2 NS 975 Oral 640 1700 460 Output: Urine 500 600 300 Laboratory Last Values Hgb 12.0 g/dl (12.0-16.0) 07/02/18 05:48 Hct 34 % (35-47) L 07/02/18 05:48 Plt Count 185 10^3/ul (150-450) 07/02/18 05:48 MPV 7.8 fL (7.4-10.4) 07/02/18 05:48 INR (Anticoag Therapy) 1.81 (0.77-1.02) H 07/02/18 05:48 Sodium 140 mmol/L (135-145) 07/01/18 05:04 Potassium 3.4 mmol/L (3.5-5.0) L 07/02/18 05:48 Chloride 105 mmol/L (101-111) 07/01/18 05:04 Carbon Dioxide 30 mmol/L (22-32) 07/01/18 05:04 Anion Gap 5 mmol/L (2-11) 07/01/18 05:04 BUN 9 mg/dL (6-24) 07/01/18 05:04 Creatinine 0.62 mg/dL (0.51-0.95) 07/01/18 05:04 Est GFR ( Amer) 114.5 (>60) 07/01/18 05:04 Est GFR (Non-Af Amer) 94.6 (>60) 07/01/18 05:04 BUN/Creatinine Ratio 14.5 (8-20) 07/01/18 05:04 Glucose 145 mg/dL (70-100) H 07/01/18 05:04 POC Glucose (mg/dL) 119 mg/dL (70-100) H 07/01/18 07:59 Calcium 8.3 mg/dL (8.6-10.3) L 07/01/18 05:04
[2018-07-02 11:34] VITALS: BP 106/57
[2018-07-02] MEDS: oxyCODONE TAB* 5 MG TAB PO PRN (12:00)
--- NOTE | 2018-07-02 15:35 | PN ---
Subjective Date of Service: 07/02/18 Interval History: Sitting in recliner on assessment Reports pain is well controlled and she is ready for discharge Denies cp, sob, palpitations, n/v/d, lightheadedness, dizziness. Objective Vital Signs - 8 hr 07/02/18 07/02/18 07/02/18 07:45 08:00 10:20 Temperature Pulse Rate Respiratory 16 16 18 Rate Blood Pressure (mmHg) O2 Sat by Pulse 93 Oximetry 07/02/18 07/02/18 11:21 12:00 Temperature 97.9 F Pulse Rate 75 Respiratory 16 16 Rate Blood Pressure 106/57 (mmHg) O2 Sat by Pulse 96 Oximetry Oxygen Devices in Use Now: None Appearance: Well appearing Ears/Nose/Mouth/Throat: Clear Oropharnyx, Mucous Membranes Moist Neck: NL Appearance and Movements; NL JVP Respiratory: Symmetrical Chest Expansion and Respiratory Effort, Clear to Auscultation Cardiovascular: NL Sounds; No Murmurs; No JVD, RRR, No Edema Abdominal: NL Sounds; No Tenderness; No Distention Extremities: No Edema Skin: No Rash or Ulcers Neurological: Alert and Oriented x 3 Nutrition: Taking PO's Result Diagrams: 07/02/18 05:48 07/02/18 05:48 Additional Lab and Data: Laboratory Results - last 24 hr 07/02/18 07/02/18 07/02/18 05:48 05:48 05:48 Hgb 12.0 Hct 34 L Plt Count 185 MPV 7.8 INR (Anticoag Therapy) 1.81 H Potassium 3.4 L Assess/Plan/Problems-Billing Assessment: 72 yr old female with pmh of gastritis, hiatel hernia, diverticulitis, uterine cancer, osteoarthritis, hld, htn, gastric tumor, and obestiy; who is sp left total knee arthroplasty - Patient Problems (1) History of total left knee replacement (TKR) Comment: - Management per ortho team (2) Electrolyte abnormality Comment: - Potassium 3.4 today after replacement - Ortho PA to have patient rechecked after discharge (3) Hyperlipidemia Comment: - Cont statin (4) HTN (hypertension) Comment: - Continue home meds and follow up with PCP (5) DVT (deep venous thrombosis) Comment: - Per ortho team (warfarin) (6) Full code status Comment: - Full Code Attending: Melba Nam
== END 2018-07-02 12:55 | disposition home or self-care (01) ==
LOC: INTOOBSV 05:30 → AA 05:30 → SSU 12:01
PROVIDERS: ADMIT Orthopaedic Surgery; ATTEND Orthopaedic Surgery
DX: M17.12 Unilateral primary osteoarthritis, left knee (principal); E78.5 Hyperlipidemia, unspecified; I10 Essential (primary) hypertension; I82.409 Acute embolism and thrombosis of unspecified deep veins of unspecified lower extremity; Z85.40 Personal history of malignant neoplasm of unspecified female genital organ; E66.9 Obesity, unspecified; Z68.30 Body mass index [BMI] 30.0-30.9, adult; H52.10 Myopia, unspecified eye; K29.70 Gastritis, unspecified, without bleeding; K57.92 Diverticulitis of intestine, part unspecified, without perforation or abscess without bleeding
CPT/HCPCS: 36415; 80048; 84132; 85014; 85018; 85049; 85610; 88305; 88311; 96372; 96374; 96375; 96376; A9270-GY; C1776; G0378; G8978-GP-CJ; G8979-GP-CI; G8987-GO-CI; G8988-GO-CI; G8989-GO-CI; J0690; J1100; J1170; J1644; J2250; J2405; J2704; J2795; J3010